=== PATIENT | female | born 1995 | race Caucasian/White ===

== ENCOUNTER 2017-01-27 00:10 | Emergency (ER) | payer BC, OTHER ==
[~2017-01-27 00:10] MED LIST: PRED-503 PO
[2017-01-27 00:12] VITALS: BP 136/74; PULSE 113; RESP 16; TEMP 97.7; O2SAT 99
--- NOTE | 2017-01-27 01:50 | PD ---
HPI Chief Complaint: Related Problem Time Seen by Provider: 01:50 Travel History International Travel<30 days: No Contact w/Intl Traveler<30days: No Traveled to known affect area: No History of Present Illness HPI 21-year-old female came to the emergency room with history of right adnexal pain for past 2 days. Patient found out 3 days ago that she was . Her LMP was December 17. No vaginal bleeding. Patient is A0. She is otherwise doing fine. No history of nausea vomiting. Vital signs are stable. Patient is otherwise a healthy person. No history of dysuria or hematuria. Patient does not have an OB care yet. Pain is constantly there, but waxes and wanes. Worse upon walking. PFSH Past Medical History Narrative Medical List of her past medical, surgical, social and family history is reviewed from the nursing note. Medical History: Denies Significant Hx Developmental Delay: No Diminished Hearing: No Immunizations Current: Yes Tetanus Vaccination: Unknown ?: LMP: 12/19/16 Past Surgical History Surgical History: No Previous Surgery Social History Alcohol Use: No Tobacco Use: No Substance Use: No Allergies-Medications (Allergen,Severity, Reaction): Coded Allergies: No Known Allergies (Unverified , 01/29/17) Comments No known drug allergies. Reported Meds & Prescriptions Reported Meds & Active Scripts Active Plus Iron 29-1 mg ( Vit-Iron Carbonyl) 29 Mg Iron-1 Mg Tab 1 Tab PO DAILY Narrative Medication List of her home medications reviewed from the nursing note. Review of Systems Except as stated in HPI: all other systems reviewed are Neg Genitourinary: Positive: Pelvic Pain Physical Exam Narrative GENERAL: Awake, alert, no obvious distress SKIN: Focused skin assessment warm/dry. HEAD: Atraumatic. Normocephalic. EYES: Pupils equal and round. No scleral icterus. No injection or drainage. ENT: No nasal bleeding or discharge. Mucous membranes pink and moist. NECK: Trachea midline. No JVD. CARDIOVASCULAR: Regular rate and rhythm. No murmur appreciated. RESPIRATORY: No accessory muscle use. Clear to auscultation. Breath sounds equal bilaterally. GASTROINTESTINAL: Abdomen soft, non-tender, nondistended. Hepatic and splenic margins not palpable. MUSCULOSKELETAL: No obvious deformities. No clubbing. No cyanosis. No edema. NEUROLOGICAL: Awake and alert. No obvious cranial nerve deficits. Motor grossly within normal limits. Normal speech. PSYCHIATRIC: Appropriate mood and affect; insight and judgment normal. Data Data Last Documented VS Orders Orders Ed Poc Ultrasound (01/27/17 ) Beta Hcg (Quant/Titer) (01/27/17 01:56) Complete Blood Count With Diff (01/27/17 01:56) Basic Metabolic Panel (Bmp) (01/27/17 01:56) Type And Screen (01/27/17 01:56) Urinalysis - C+S If Indicated (01/27/17 01:56) Ed Discharge Order (01/27/17 04:25) Labs Laboratory Tests Test 01/27/17 02:34 01/27/17 03:22 White Blood Count 13.6 TH/MM3 Red Blood Count 4.54 MIL/MM3 Hemoglobin 14.5 GM/DL Hematocrit 41.4 % Mean Corpuscular Volume 91.2 FL Mean Corpuscular Hemoglobin 32.0 PG Mean Corpuscular Hemoglobin Concent 35.1 % Red Cell Distribution Width 12.6 % Platelet Count 293 TH/MM3 Mean Platelet Volume 7.2 FL Neutrophils (%) (Auto) 64.0 % Lymphocytes (%) (Auto) 27.1 % Monocytes (%) (Auto) 6.9 % Eosinophils (%) (Auto) 1.2 % Basophils (%) (Auto) 0.8 % Neutrophils # (Auto) 8.7 TH/MM3 Lymphocytes # (Auto) 3.7 TH/MM3 Monocytes # (Auto) 0.9 TH/MM3 Eosinophils # (Auto) 0.2 TH/MM3 Basophils # (Auto) 0.1 TH/MM3 CBC Comment DIFF FINAL Differential Comment Urine Color LIGHT-YELLOW Urine Turbidity CLEAR Urine pH 6.5 Urine Specific [place] 1.011 Urine Protein NEG mg/dL Urine Glucose (UA) NEG mg/dL Urine Ketones NEG mg/dL Urine Occult Blood NEG Urine Nitrite NEG Urine Bilirubin NEG Urine Urobilinogen LESS THAN 2.0 MG/DL Urine Leukocyte Esterase NEG Urine RBC LESS THAN 1 /hpf Urine WBC 1 /hpf Urine Squamous Epithelial Cells 1 /hpf Microscopic Urinalysis Comment CULT NOT INDICATED Blood Urea Nitrogen 15 MG/DL Creatinine 0.74 MG/DL Random Glucose 91 MG/DL Calcium Level 8.6 MG/DL Sodium Level 139 MEQ/L Potassium Level 3.6 MEQ/L Chloride Level 106 MEQ/L Carbon Dioxide Level 22.1 MEQ/L Anion Gap 11 MEQ/L Estimat Glomerular Filtration Rate 101 ML/MIN Human Chorionic Gonadotropin, Quant 925 MIU/ML MDM Medical Decision Making Medical Screen Exam Complete: Yes Emergency Medical Condition: Yes Medical Record Reviewed: Yes Differential Diagnosis Ectopic , early , UTI Narrative Course 4:34 AM based on my bedside pelvic ultrasound and unable to visualize a distinct pole I ordered blood test. Blood test results of back and beta- hCG is less than 1000. At this point I have chosen to discharge the patient since any ultrasound will be a low yield and asked her to return in 48 hours for repeat beta-hCG. I explained everything to the patient and she understands. Her boyfriend is here who understands as well. Patient will be discharged home. Procedures Procedure Narrative Emergency Department Pelvic ultrasound was performed with patient consent. The curvilinear probe was used in the transverse and sagittal views within the suprapubic region revealing inconclusive intrauterine . EKG Prior to Arrival: No Diagnosis Primary Impression: Early stage of Additional Impression: Pelvic pain affecting Qualified Codes: O26.891 - Other specified related conditions, first trimester; R10.2 - Pelvic and perineal pain Referrals: Primary Care Physician Additional Instructions: Otherwise return in 48 hours to get the repeat beta-hCG test done. Take the medication as per the prescription direction. Med/Other Pt SpecificInfo: Prescription(s) given Scripts Vit-Iron Carbonyl ( Plus Iron 29-1 mg) 29 Mg Iron-1 Mg Tab 1 TAB PO DAILY for Nutritional Supplement, #30 TAB 0 Refills Prov: Michelle Fam MD 01/27/17 Disposition: DISCHARGE HOME Condition: Stable Michelle Fam MD Jan 27, 2017 01:50
[2017-01-27 02:52] LABS: AUTOMATED NEUTROPHIL # 8.7 TH/MM3 (1.8-7.7); BASOPHIL # 0.1 TH/MM3 (0-0.2); BASOPHIL % 0.8 % (0.0-2.0); EOSINOPHIL # 0.2 TH/MM3 (0-0.4); EOSINOPHIL % 1.2 % (0.0-4.0); HEMATOCRIT 41.4 % (35.0-46.0); HEMOGLOBIN 14.5 GM/DL (11.6-15.3); LYMPH % 27.1 % (9.0-44.0); LYMPHOCYTE # 3.7 TH/MM3 (1.0-4.8); MEAN CELL VOLUME 91.2 FL (80.0-100.0); MEAN CORPUSCULAR HGB CONC 35.1 % (32.0-36.0); MEAN PLATELET VOLUME 7.2 FL (7.0-11.0); MONO % 6.9 % (0.0-8.0); MONOCYTE # 0.9 TH/MM3 (0-0.9); PLATELET COUNT 293 TH/MM3 (150-450); RED BLOOD COUNT 4.54 MIL/MM3 (4.00-5.30); RED CELL DISTRIBUTION WIDTH 12.6 % (11.6-17.2); WHITE BLOOD COUNT 13.6 TH/MM3 (4.0-11.0)
[2017-01-27 02:53] LABS: BILIRUBIN, URINE NEG (NEG); BLOOD, URINE NEG (NEG); GLUCOSE,URINE NEG (NEG); KETONE, URINE NEG (NEG); NITRITE,URINE NEG (NEG); PH, URINE 6.5 (5.0-8.5); SQUAMOUS EPITHELIAL CELL URINE 1 /hpf (0-5); URINE COLOR LIGHT-YELLOW (YELLW/STRAW); URINE LEUKOCYTE ESTERASE NEG (NEG)
[2017-01-27 04:21] LABS: BICARBONATE 22.1 MEQ/L (21.0-32.0); CALCIUM 8.6 MG/DL (8.5-10.1); CREATININE 0.74 MG/DL (0.50-1.00)
[2017-01-27] MEDS ORDERED: PREN29TA PO ×2 (04:36)
[2017-02-08] MEDS ORDERED: TRAM50TA PO ×2 (21:58)
== END 2017-01-27 04:40 | disposition home or self-care (01) ==
LOC: NEPE 00:10
DX: O26.891 Other specified pregnancy related conditions, first trimester (principal); R10.2 Pelvic and perineal pain; Z3A.01 Less than 8 weeks gestation of pregnancy
CPT/HCPCS: 80048; 81001; 84702; 85025; 86850; 86900; 86901; 99284

== ENCOUNTER 2017-02-08 18:58 | Emergency (ER) | payer OTHER ==
[~2017-02-08] VITALS: Ht 170.2 cm; Wt 82.0 kg
[~2017-02-08 18:58] MED LIST changes: -PRED-503 PO; +PREN29TA PO
[2017-02-08 19:01] VITALS: BP 126/74; PULSE 86; RESP 16; TEMP 98.8; O2SAT 100
[2017-02-08 20:16] LABS: BLOOD, URINE MOD (NEG); COMMENT (UR) CULT NOT INDICATED; CULTURE IF INDICATED CULT NOT INDICATED; GLUCOSE,URINE NEG (NEG); KETONE, URINE NEG (NEG); NITRITE,URINE NEG (NEG); PH, URINE 5.5 (5.0-8.5); URINE COLOR COLORLESS (YELLW/STRAW)
[2017-02-08 20:20] LABS: AUTOMATED NEUTROPHIL # 8.6 TH/MM3 (1.8-7.7); BASOPHIL # 0.1 TH/MM3 (0-0.2); BASOPHIL % 0.6 % (0.0-2.0); EOSINOPHIL # 0.1 TH/MM3 (0-0.4); EOSINOPHIL % 1.1 % (0.0-4.0); HEMO FLAGS DIFF FINAL; LYMPHOCYTE # 2.9 TH/MM3 (1.0-4.8); MEAN CELL VOLUME 90.9 FL (80.0-100.0); MEAN CORPUSCULAR HEMOGLOBIN 31.2 PG (27.0-34.0); MEAN CORPUSCULAR HGB CONC 34.3 % (32.0-36.0); MONO % 7.6 % (0.0-8.0); NEUT % 67.7 % (16.0-70.0); PLATELET COUNT 280 TH/MM3 (150-450); RED BLOOD COUNT 4.62 MIL/MM3 (4.00-5.30); RED CELL DISTRIBUTION WIDTH 12.1 % (11.6-17.2); WHITE BLOOD COUNT 12.7 TH/MM3 (4.0-11.0)
[2017-02-08 20:24] LABS: APTT (PATIENT) 31.2 SEC (24.3-30.1); PROTHROMBIN TIME - PATIENT 10.5 SEC (9.8-11.6)
[2017-02-08 20:40] VITALS: BP 132/77; PULSE 80; RESP 18; O2SAT 100
[2017-02-08 20:44] LABS: BICARBONATE 24.2 MEQ/L (21.0-32.0); POTASSIUM 3.5 MEQ/L (3.5-5.1)
--- NOTE | 2017-02-08 20:51 | PD ---
HPI Chief Complaint: Related Problem Time Seen by Provider: 20:27 Travel History International Travel<30 days: No Contact w/Intl Traveler<30days: No Traveled to known affect area: No History of Present Illness HPI Patient is a 21-year-old female presenting to the emergency department for evaluation of vaginal bleeding and abdominal cramping. Patient states she is 7 weeks . She states the bleeding and cramping started at 6 PM this evening. She reports passing large clots. She denies any dysuria, abdominal pain, fever, chills. PFS Past Medical History Medical History: Denies Significant Hx Developmental Delay: No Diminished Hearing: No Immunizations Current: Yes ?: LMP: 12/18/2016 Social History Alcohol Use: No Tobacco Use: No Substance Use: No Allergies-Medications (Allergen,Severity, Reaction): Coded Allergies: No Known Allergies (Unverified Adverse Reaction, Unknown, 02/08/17) Reported Meds & Prescriptions Reported Meds & Active Scripts Active Plus Iron 29-1 mg ( Vit-Iron Carbonyl) 29 Mg Iron-1 Mg Tab 1 Tab PO DAILY Review of Systems Except as stated in HPI: all other systems reviewed are Neg Genitourinary: Positive: Pelvic Pain (cramping), Vaginal Bleeding Physical Exam Narrative GENERAL: Well-developed, well-nourished, alert female. Resting comfortably in no acute distress. SKIN: Warm and dry. HEAD: Atraumatic. Normocephalic. EYES: Pupils equal and round. No scleral icterus. No injection or drainage. ENT: No nasal bleeding or discharge. Mucous membranes pink and moist. NECK: Trachea midline. No JVD. CARDIOVASCULAR: Regular rate and rhythm. RESPIRATORY: No accessory muscle use. Clear to auscultation. Breath sounds equal bilaterally. GASTROINTESTINAL: Abdomen soft, non-tender, nondistended. Hepatic and splenic margins not palpable. MUSCULOSKELETAL: Extremities without clubbing, cyanosis, or edema. No obvious deformities. NEUROLOGICAL: Awake and alert. No obvious cranial nerve deficits. Motor grossly within normal limits. Five out of 5 muscle strength in the arms and legs. Normal speech. PSYCHIATRIC: Appropriate mood and affect; insight and judgment normal. Data Data Last Documented VS Vital Signs Date Time Temp Pulse Resp B/P (MAP) Pulse Ox O2 Delivery O2 Flow Rate FiO2 02/08/17 20:40 80 18 132/77 (95) 100 Room Air 02/08/17 19:01 98.8 Orders Orders Basic Metabolic Panel (Bmp) (02/08/17 19:13) Beta Hcg (Quant/Titer) (02/08/17 19:13) Complete Blood Count With Diff (02/08/17 19:13) Prothrombin Time / Inr (Pt) (02/08/17 19:13) Act Partial Throm Time (Ptt) (02/08/17 19:13) Urinalysis - C+S If Indicated (02/08/17 19:13) Complete Rh (02/08/17 19:13) Oxycodone-Acetamin 5-325 Mg (Percocet (02/08/17 22:00) Labs Laboratory Tests Test 02/08/17 20:00 White Blood Count 12.7 TH/MM3 Red Blood Count 4.62 MIL/MM3 Hemoglobin 14.4 GM/DL Hematocrit 42.0 % Mean Corpuscular Volume 90.9 FL Mean Corpuscular Hemoglobin 31.2 PG Mean Corpuscular Hemoglobin Concent 34.3 % Red Cell Distribution Width 12.1 % Platelet Count 280 TH/MM3 Mean Platelet Volume 7.2 FL Neutrophils (%) (Auto) 67.7 % Lymphocytes (%) (Auto) 23.0 % Monocytes (%) (Auto) 7.6 % Eosinophils (%) (Auto) 1.1 % Basophils (%) (Auto) 0.6 % Neutrophils # (Auto) 8.6 TH/MM3 Lymphocytes # (Auto) 2.9 TH/MM3 Monocytes # (Auto) 1.0 TH/MM3 Eosinophils # (Auto) 0.1 TH/MM3 Basophils # (Auto) 0.1 TH/MM3 CBC Comment DIFF FINAL Differential Comment Prothrombin Time 10.5 SEC Prothromb Time International Ratio 1.0 RATIO Activated Partial Thromboplast Time 31.2 SEC Urine Color COLORLESS Urine Turbidity CLEAR Urine pH 5.5 Urine Specific [place] 1.006 Urine Protein NEG mg/dL Urine Glucose (UA) NEG mg/dL Urine Ketones NEG mg/dL Urine Occult Blood MOD Urine Nitrite NEG Urine Bilirubin NEG Urine Urobilinogen LESS THAN 2.0 MG/DL Urine Leukocyte Esterase NEG Urine RBC 4 /hpf Urine WBC 1 /hpf Microscopic Urinalysis Comment CULT NOT INDICATED Blood Urea Nitrogen 15 MG/DL Creatinine 0.77 MG/DL Random Glucose 86 MG/DL Calcium Level 10.0 MG/DL Sodium Level 136 MEQ/L Potassium Level 3.5 MEQ/L Chloride Level 101 MEQ/L Carbon Dioxide Level 24.2 MEQ/L Anion Gap 11 MEQ/L Estimat Glomerular Filtration Rate 97 ML/MIN Human Chorionic Gonadotropin, Quant 4669 MIU/ML MDM Medical Decision Making Medical Screen Exam Complete: Yes Emergency Medical Condition: Yes Interpretation(s) Vital Signs Date Time Temp Pulse Resp B/P (MAP) Pulse Ox O2 Delivery O2 Flow Rate FiO2 02/08/17 20:40 80 18 132/77 (95) 100 Room Air 02/08/17 20:34 (91) 02/08/17 19:01 98.8 86 16 126/74 (91) 100 Differential Diagnosis Miscarriage versus threatened versus vaginal bleeding versus anemia versus other Narrative Course Patient presented for evaluation of vaginal bleeding during first semester . Patient's vital signs are stable, labs ordered and pending. Bedside ultrasound did not reveal any heart tones. Cervix is open with large clots and bloody drainage noted in vaginal vault. HCG level trended up from from 1299 on 01/26/17 to 4669 today. CBC is unremarkable Urinalysis with moderate occult blood which is to be expected to the vaginal bleeding. Tissue sent to pathology. Physical exam findings appear most consistent with miscarriage. Discussed with patient and mother at bedside. She was encouraged to follow-up with her OB/ SCIENTIST/ENGINEER. She was given Percocet for abdominal cramping prior to discharge. She was encouraged return to emergency department for any new or worsening symptoms. Patient mother verbalized understanding of instructions. Patient stable for discharge. Diagnosis Primary Impression: Miscarriage Referrals: Treasurer 3 days Patient Instructions: General Instructions, Miscarriage (ED) Additional Instructions: Follow-up with your SALESFORCE BUSINESS ANALYST Return to emergency department immediately for any new or worsening symptoms Take medication as needed and as directed for pain Do not drive or operate machinery while taking narcotic pain medication Med/Other Pt SpecificInfo: Prescription(s) given Scripts Tramadol (Tramadol) 50 Mg Tab 50 MG PO Q6H Y for PAIN, #10 TAB 0 Refills Prov: Rebeka Ennis 02/08/17 Disposition: 01 DISCHARGE HOME Condition: Stable Rebeka Ennis Feb 08, 2017 20:51
[2017-02-08] MEDS ORDERED: TRAM50TA PO (21:58)
[2017-02-08] MEDS ORDERED: oxyCODONE/ACETAMINOPHEN 5 MG/325 MG TAB PO ONE (22:00)
== END 2017-02-08 22:50 | disposition home or self-care (01) ==
LOC: NEPE 18:58
DX: O03.9 Complete or unspecified spontaneous abortion without complication (principal)
CPT/HCPCS: 80048; 81001; 84702; 85025; 85610; 85730; 86901; 88305; 99284

== ENCOUNTER 2017-04-05 19:49 | Emergency (ER) | payer OTHER ==
[~2017-04-05] VITALS: Ht 170.2 cm; Wt 81.8 kg
[~2017-04-05 19:49] MED LIST changes: +TRAM50TA PO
[2017-04-05 19:51] VITALS: BP 124/81; PULSE 73; RESP 16; TEMP 99.1; O2SAT 100
[2017-04-05] MEDS ORDERED: TETANUS/DIPHTHERIA TOXOID ADULT 0.5 ML VIAL IM ONE (20:15)
--- NOTE | 2017-04-05 20:16 | PD ---
HPI Chief Complaint: Laceration/Skin Injury Time Seen by Provider: 20:05 Travel History International Travel<30 days: No Contact w/Intl Traveler<30days: No Traveled to known affect area: No History of Present Illness HPI 22-year-old otherwise healthy female presents to the emergency room for evaluation of laceration to her left second finger that occurred just prior to arrival. Patient was chopping onions when she missed her finger and hit her nail. States she applied pressure but the bleeding would not stop so she came to the emergency room. Patient denies significant pain. She did not wash the wound. Unknown last tetanus. [facility] Past Medical History Developmental Delay: No Diminished Hearing: No Immunizations Current: Yes ?: Not Social History Alcohol Use: No Tobacco Use: No Substance Use: No Allergies-Medications (Allergen,Severity, Reaction): Coded Allergies: No Known Allergies (Unverified Adverse Reaction, Unknown, 04/05/17) Reported Meds & Prescriptions Reported Meds & Active Scripts Active Review of Systems Except as stated in HPI: all other systems reviewed are Neg Physical Exam Narrative GENERAL: Well-nourished, well-developed female in no acute distress. Afebrile. Ambulatory. SKIN: Focused skin assessment warm/dry. There is a superficial 0.5 cm laceration to the left second finger on the lateral aspect of the dorsal, distal finger. There is a very small extension into the fingernail. HEAD: Normocephalic. EYES: No scleral icterus. No injection or drainage. NECK: Supple, trachea midline. No JVD or lymphadenopathy. CARDIOVASCULAR: Regular rate and rhythm without murmurs, gallops, or rubs. RESPIRATORY: Breath sounds equal bilaterally. No accessory muscle use. PSYCHIATRIC: No delusional thought processes. No hallucinations. Data Data Last Documented VS Vital Signs Date Time Temp Pulse Resp B/P (MAP) Pulse Ox O2 Delivery O2 Flow Rate FiO2 04/05/17 19:51 99.1 73 16 124/81 (95) 100 Orders Orders Tetanus/Diphtheria Tox Adult (Tetanus/Di (04/05/17 20:15) MDM Medical Decision Making Medical Screen Exam Complete: Yes Emergency Medical Condition: Yes Medical Record Reviewed: Yes Differential Diagnosis Laceration, tetanus prophylaxis, contusion, avulsion Narrative Course 22-year-old otherwise healthy female presents to ED for evaluation of laceration to left second finger that occurred just prior to arrival. Patient accidentally cut herself while cutting onions. There is a superficial 0.5 cm laceration to the left second finger on the lateral aspect of the dorsal, distal finger. There is a very small extension into the fingernail. Wound does not require repair. It was thoroughly cleansed. Glue was applied to prevent no from snagging. Tetanus updated. Patient was discharged with wound care instructions and told to follow up with PCP or return for worsening symptoms. She understands and agrees to plan. Diagnosis Primary Impression: Finger laceration Qualified Codes: S61.311A - Laceration without foreign body of left index finger with damage to nail, initial encounter Referrals: Primary Care Physician Additional Instructions: Keep wound clean and dry. When the glue falls off, apply triple about appointment daily until healed. Follow-up with a primary care physician. Return to the emergency room for worsening symptoms. Disposition: 01 DISCHARGE HOME Condition: Stable Kalee Mejia Apr 05, 2017 20:16
== END 2017-04-05 20:38 | disposition home or self-care (01) ==
LOC: NEPK 19:49
DX: S61.311A Laceration without foreign body of left index finger with damage to nail, initial encounter (principal); W26.0XXA Contact with knife, initial encounter; Y93.G1 Activity, food preparation and clean up; Z23 Encounter for immunization
CPT/HCPCS: 90471; 90714

== ENCOUNTER 2017-04-07 21:02 | Emergency (ER) | payer OTHER ==
[~2017-04-07] VITALS: Ht 170.2 cm; Wt 80.0 kg
[2017-04-07 21:04] VITALS: BP 120/72; PULSE 116; RESP 16; TEMP 98.3; O2SAT 99
[2017-04-07 23:34] VITALS: O2SAT 98
[2017-04-07 23:56] LABS: AUTOMATED NEUTROPHIL # 4.7 TH/MM3 (1.8-7.7); BASOPHIL % 0.3 % (0.0-2.0); EOSINOPHIL # 0.3 TH/MM3 (0-0.4); EOSINOPHIL % 2.9 % (0.0-4.0); HEMATOCRIT 42.1 % (35.0-46.0); HEMOGLOBIN 14.9 GM/DL (11.6-15.3); LYMPH % 31.1 % (9.0-44.0); LYMPHOCYTE # 2.8 TH/MM3 (1.0-4.8); MEAN CELL VOLUME 91.3 FL (80.0-100.0); MEAN CORPUSCULAR HEMOGLOBIN 32.2 PG (27.0-34.0); MEAN CORPUSCULAR HGB CONC 35.3 % (32.0-36.0); MEAN PLATELET VOLUME 7.4 FL (7.0-11.0); MONO % 12.6 % (0.0-8.0); MONOCYTE # 1.1 TH/MM3 (0-0.9); NEUT % 53.1 % (16.0-70.0); PLATELET COUNT 276 TH/MM3 (150-450); RED BLOOD COUNT 4.61 MIL/MM3 (4.00-5.30); RED CELL DISTRIBUTION WIDTH 12.7 % (11.6-17.2); WHITE BLOOD COUNT 8.9 TH/MM3 (4.0-11.0)
[2017-04-07 23:57] LABS: AMORPHOUS SEDIMENT, URINE RARE; BACTERIA, URINE RARE /hpf; BILIRUBIN, URINE NEG (NEG); BLOOD, URINE NEG (NEG); GLUCOSE,URINE NEG (NEG); KETONE, URINE NEG (NEG); MUCUS URINE FEW /lpf (OCC); NITRITE,URINE NEG (NEG); SQUAMOUS EPITHELIAL CELL URINE 1 /hpf (0-5); URINE COLOR LIGHT-YELLOW (YELLW/STRAW); URINE LEUKOCYTE ESTERASE NEG (NEG)
--- NOTE | 2017-04-07 23:58 | PD ---
HPI Chief Complaint: Cold / Flu Symptoms Time Seen by Provider: 23:26 Travel History International Travel<30 days: No Contact w/Intl Traveler<30days: No Traveled to known affect area: No History of Present Illness HPI Patient is a 22-year-old female who has had 4 days of shaking chills body aches and diarrhea. Today she took Ronda-Emelle cold and half an hour later vomited and she does not feel any better from that medicine only medication she took in the last few days to make herself feel better she did not take anything to stop the diarrhea. She lives with 4 other grown adults known also sick. She has not seen another doctor. Again the Ronda-Emelle cold and flu seem to make things worse. Her main complaint is shaking chills body aches diarrhea excessive for the last 4 days PFSH Past Medical History Medical History: Denies Significant Hx Developmental Delay: No Diminished Hearing: No Immunizations Current: Yes Influenza Vaccination: Yes ?: Not LMP: 04/02/2017 Past Surgical History Surgical History: No Previous Surgery Social History Alcohol Use: No Tobacco Use: Yes (04/05 PPD) Substance Use: No Allergies-Medications (Allergen,Severity, Reaction): Coded Allergies: No Known Allergies (Unverified Adverse Reaction, Unknown, 04/05/17) Reported Meds & Prescriptions Reported Meds & Active Scripts Active Pseudoephedrine (Pseudoephedrine HCl) 60 Mg Tab 60 Mg PO Q6H PRN Ibuprofen 600 Mg Tab 600 Mg PO Q6H PRN Review of Systems Except as stated in HPI: all other systems reviewed are Neg Physical Exam Narrative GENERAL: Nontoxic-appearing awake alert no signs of distress SKIN: Warm and dry. HEAD: Atraumatic. Normocephalic. EYES: Pupils equal and round. No scleral icterus. No injection or drainage. ENT: No nasal bleeding or discharge. Mucous membranes pink and moist. Serial pharynx is erythematous but there is no exudate NECK: Trachea midline. No JVD. CARDIOVASCULAR: Regular rate and rhythm. RESPIRATORY: No accessory muscle use. Clear to auscultation. Breath sounds equal bilaterally. Her lungs are clear to auscultation there is no wheeze no crackles GASTROINTESTINAL: Abdomen soft, mild epigastric and right upper quadrant tenderness-tender, nondistended. Hepatic and splenic margins not palpable. MUSCULOSKELETAL: Extremities without clubbing, cyanosis, or edema. No obvious deformities. NEUROLOGICAL: Awake and alert. No obvious cranial nerve deficits. Motor grossly within normal limits. Five out of 5 muscle strength in the arms and legs. Normal speech. PSYCHIATRIC: Appropriate mood and affect; insight and judgment normal. Data Data Last Documented VS Vital Signs Date Time Temp Pulse Resp B/P (MAP) Pulse Ox O2 Delivery O2 Flow Rate FiO2 04/08/17 01:15 80 16 116/76 (89) 99 04/07/17 21:04 98.3 Room Air Orders Orders Complete Blood Count With Diff (04/07/17 23:23) Comprehensive Metabolic Panel (04/07/17 23:23) Urinalysis - C+S If Indicated (04/07/17 23:23) Ed Urine Pregnancytest Poc (04/07/17 23:23) Iv Access Insert/Monitor (04/07/17 23:23) Oxygen Administration (04/07/17 23:23) Oximetry (04/07/17 23:23) Lipase (04/07/17 23:23) Influenzae A/B Antigen (04/07/17 23:35) Group A Rapid Strep Screen (04/07/17 23:35) Ketorolac Inj (Toradol Inj) (04/08/17 00:00) Strep Culture (Group A) (04/08/17 00:00) Ed Discharge Order (04/08/17 01:11) Labs Laboratory Tests Test 04/07/17 23:25 White Blood Count 8.9 TH/MM3 Red Blood Count 4.61 MIL/MM3 Hemoglobin 14.9 GM/DL Hematocrit 42.1 % Mean Corpuscular Volume 91.3 FL Mean Corpuscular Hemoglobin 32.2 PG Mean Corpuscular Hemoglobin Concent 35.3 % Red Cell Distribution Width 12.7 % Platelet Count 276 TH/MM3 Mean Platelet Volume 7.4 FL Neutrophils (%) (Auto) 53.1 % Lymphocytes (%) (Auto) 31.1 % Monocytes (%) (Auto) 12.6 % Eosinophils (%) (Auto) 2.9 % Basophils (%) (Auto) 0.3 % Neutrophils # (Auto) 4.7 TH/MM3 Lymphocytes # (Auto) 2.8 TH/MM3 Monocytes # (Auto) 1.1 TH/MM3 Eosinophils # (Auto) 0.3 TH/MM3 Basophils # (Auto) 0.0 TH/MM3 CBC Comment DIFF FINAL Differential Comment Urine Color LIGHT-YELLOW Urine Turbidity CLEAR Urine pH 6.0 Urine Specific [place] 1.008 Urine Protein NEG mg/dL Urine Glucose (UA) NEG mg/dL Urine Ketones NEG mg/dL Urine Occult Blood NEG Urine Nitrite NEG Urine Bilirubin NEG Urine Urobilinogen LESS THAN 2.0 MG/DL Urine Leukocyte Esterase NEG Urine RBC 1 /hpf Urine WBC 2 /hpf Urine Squamous Epithelial Cells 1 /hpf Urine Amorphous Sediment RARE Urine Bacteria RARE /hpf Urine Mucus FEW /lpf Microscopic Urinalysis Comment CULT NOT INDICATED Blood Urea Nitrogen 12 MG/DL Creatinine 0.73 MG/DL Random Glucose 70 MG/DL Total Protein 7.7 GM/DL Albumin 4.1 GM/DL Calcium Level 8.8 MG/DL Alkaline Phosphatase 98 U/L Aspartate Amino Transf (AST/SGOT) 13 U/L Alanine Aminotransferase (ALT/SGPT) 24 U/L Total Bilirubin 0.2 MG/DL Sodium Level 141 MEQ/L Potassium Level 3.5 MEQ/L Chloride Level 107 MEQ/L Carbon Dioxide Level 28.2 MEQ/L Anion Gap 6 MEQ/L Estimat Glomerular Filtration Rate 102 ML/MIN Lipase 160 U/L [facility] Medical Decision Making Medical Screen Exam Complete: Yes Emergency Medical Condition: Yes Differential Diagnosis Viral illness versus strep pharyngitis versus influenza versus viral syndrome and OS versus UTI Narrative Course UA is negative for infection flu swab rapid strep oral negative she has a viral infection and OS we'll treat symptomatically discharged home follow-up as outpatient Diagnosis Primary Impression: Viral illness Patient Instructions: General Instructions, Viral Syndrome (ED) Scripts Pseudoephedrine (Pseudoephedrine) 60 Mg Tab 60 MG PO Q6H Y for NASAL CONGESTION, #15 TAB 0 Refills Prov: Garret Helms MD 04/08/17 Ibuprofen (Ibuprofen) 600 Mg Tab 600 MG PO Q6H Y for Pain/Inflammation, #20 TAB 0 Refills Prov: Garret Helms MD 04/08/17 Disposition: 01 DISCHARGE HOME Condition: Good Garret Helms MD Apr 07, 2017 23:58
[2017-04-08] MEDS ORDERED: KETOROLAC TROMETHAMINE 30 MG/ML (IVP) VIAL IV PUSH ONE
[2017-04-08 00:12] LABS: ALBUMIN 4.1 GM/DL (3.4-5.0); ALT (GPT) 24 U/L (9-42); AST (GOT) 13 U/L (16-38); BICARBONATE 28.2 MEQ/L (21.0-32.0); BLOOD UREA NITROGEN 12 MG/DL (7-18); CALCIUM 8.8 MG/DL (8.5-10.1); CHLORIDE 107 MEQ/L (98-107); CREATININE 0.73 MG/DL (0.50-1.00); GLOMERULAR FILTRATION RATE 102 ML/MIN (>89); GLUCOSE,RANDOM 70 MG/DL (74-106); LIPASE 160 U/L (73-393); SODIUM (NA) 141 MEQ/L (136-145)
[2017-04-08 00:14] LABS: ALKALINE PHOSPHATASE 98 U/L (45-117); TOTAL BILIRUBIN ADULT 0.2 MG/DL (0.2-1.0); TOTAL PROTEIN 7.7 GM/DL (6.4-8.2)
[2017-04-08] MEDS ORDERED: IBUP-232 PO (01:10)
[2017-04-08] MEDS ORDERED: SUDO60TA2 PO (01:10)
[2017-04-08 01:15] VITALS: BP 116/76
== END 2017-04-08 01:20 | disposition home or self-care (01) ==
LOC: NEPE 21:02
DX: B34.9 Viral infection, unspecified (principal); F17.200 Nicotine dependence, unspecified, uncomplicated; R25.1 Tremor, unspecified
CPT/HCPCS: 80053; 81001; 83690; 84703; 85025; 87081; 87804; 87880; 96374; 99284; J1885

== ENCOUNTER 2017-07-07 14:49 | Emergency (ER) | payer OTHER ==
[~2017-07-07 14:49] MED LIST changes: +IBUP-232 PO; -PREN29TA PO; +SUDO60TA2 PO; -TRAM50TA PO
[2017-07-07 14:55] VITALS: BP 116/60; PULSE 78; RESP 16; TEMP 98; O2SAT 98
--- NOTE | 2017-07-07 17:20 | PD ---
HPI Chief Complaint: ENT Complaint Time Seen by Provider: 17:03 Travel History International Travel<30 days: No Contact w/Intl Traveler<30days: No Traveled to known affect area: No History of Present Illness HPI 22-year-old female presents to the emergency department with complaint of sore throat since yesterday. Just found out she was yesterday. Her brother was diagnosed with strep throat yesterday also. Denies ear pain, nasal congestion, cough, fevers, vomiting. Denies lump in throat, difficulty swallowing, unusual drooling. Denies painful swallowing. Denies abdominal cramping, pain. Denies abnormal vaginal discharge, odor, leaking, bleeding. Denies dysuria. Rates sore throat /. Has not taken any medications or try any treatments to alleviate her symptoms. No known aggravating or relieving factors. No primary care provider. No known allergies. History of iron deficiency anemia. Has no other medical complaints. no other modifying factors or associated signs and symptoms. PFSH Past Medical History Developmental Delay: No Diminished Hearing: No Immunizations Current: Yes ?: Social History Alcohol Use: No Tobacco Use: Yes (04/05 PPD) Substance Use: No Allergies-Medications (Allergen,Severity, Reaction): Coded Allergies: No Known Allergies (Unverified Adverse Reaction, Unknown, 04/05/17) Reported Meds & Prescriptions Reported Meds & Active Scripts Active Pseudoephedrine (Pseudoephedrine HCl) 60 Mg Tab 60 Mg PO Q6H PRN Ibuprofen 600 Mg Tab 600 Mg PO Q6H PRN Review of Systems Except as stated in HPI: all other systems reviewed are Neg Physical Exam Narrative GENERAL: Well-nourished, well-developed feet patient, in no acute distress; afebrile, nontoxic-appearing SKIN: Warm and dry. No rash. HEAD: Atraumatic. Normocephalic. EYES: Pupils equal and round. No scleral icterus. No injection or drainage. ENT: Mucosa pink and moist. No erythema or exudates. No uvular edema. No uvular , palatal, or tonsillar deviation. Airway patent. EARS: Bilateral pinnae and external canals appear within normal limits. Bilateral tympanic membranes without erythema, dullness or perforation. NECK: Trachea midline. No lymphadenopathy. CARDIOVASCULAR: Regular rate and rhythm. No murmur appreciated. RESPIRATORY: No accessory muscle use. Clear to auscultation. Breath sounds equal bilaterally. No retractions or tachypnea. GASTROINTESTINAL: Abdomen soft, non-tender, nondistended. Hepatic and splenic margins not palpable. Bowel sounds are active 4 quadrants. MUSCULOSKELETAL: No obvious deformities. No clubbing. No cyanosis. No edema. NEUROLOGICAL: Awake and alert. Oriented 3. No obvious cranial nerve deficits. Motor grossly within normal limits. Normal speech. Moves all extremities. 5/5 strength to all extremities. PSYCHIATRIC: Appropriate mood and affect; insight and judgment normal. Data Data Last Documented VS Vital Signs Date Time Temp Pulse Resp B/P (MAP) Pulse Ox O2 Delivery O2 Flow Rate FiO2 07/07/17 14:55 98.0 78 16 116/60 (78) 98 Orders Orders Group A Rapid Strep Screen (07/07/17 14:57) Strep Culture (Group A) (07/07/17 15:00) Ed Discharge Order (07/07/17 17:20) MDM Medical Decision Making Medical Screen Exam Complete: Yes Emergency Medical Condition: Yes Medical Record Reviewed: Yes Differential Diagnosis Viral pharyngitis, strep pharyngitis, sore throat, less likely peritonsillar abscess Narrative Course 22-year-old female with sore throat. Her brother was diagnosed with strep throat yesterday. She found out she was yesterday. Denies abdominal or vaginal symptoms. Patient is afebrile and nontoxic-appearing. Denies fever , vomiting. Rapid strep negative. Discussed viral illness and symptom management. Instructed patient to follow up with primary care provider. Patient verbalizes understanding and agreement with treatment plan. Patient is medically cleared and stable for discharge. Discussed reasons to return to the emergency department. Patient agrees with treatment plan. The patients vital signs are stable and the patient is stable for outpatient follow-up and treatment. Patient discharged home, stable and in no acute distress. Diagnosis Primary Impression: Sore throat Referrals: [facility] Renal Social Worker Primary Care Physician Patient Instructions: General Instructions, Pharyngitis (ED) Additional Instructions: Get plenty of sleep/rest Rest your voice Drink plenty of fluids to prevent dehydration Use warm saltwater gargles to soothe throat pain Use an air humidifier/turn off ceiling fans Use throat lozenges as needed for sore throat Tylenol as needed to relieve pain and fever Follow-up with your primary care provider Return immediately to the emergency department with worsening of symptoms Med/Other Pt SpecificInfo: No Change to Meds, No Meds Exist/No RX given Disposition: 01 DISCHARGE HOME Condition: Stable Eun Wei Jul 07, 2017 17:20
== END 2017-07-07 17:32 | disposition home or self-care (01) ==
LOC: NEPK 14:49
DX: J02.9 Acute pharyngitis, unspecified (principal); F17.200 Nicotine dependence, unspecified, uncomplicated
CPT/HCPCS: 87081; 87880; 99283

== ENCOUNTER 2017-07-28 19:43 | Emergency (ER) | payer OTHER ==
[~2017-07-28] VITALS: Ht 170.2 cm; Wt 81.5 kg
[2017-07-28 20:19] VITALS: BP 124/75; PULSE 83; RESP 16; TEMP 98.3; O2SAT 100
--- NOTE | 2017-07-28 20:41 | PD ---
HPI Chief Complaint: Abdominal Pain Time Seen by Provider: 20:34 Travel History International Travel<30 days: No Contact w/Intl Traveler<30days: No Traveled to known affect area: No History of Present Illness HPI 22-year-old white female presents emergency department with complaints of lower abdominal cramping pain over the last day. Patient is 8-1/2 weeks with twins. Her last menstrual period was May 28, 2017. She states that this is her second . She had a miscarriage in the past. She was seen approximately 6 weeks ago at [facility] where she was diagnosed with twins. Since then she has had normal progression of her with some associated nausea. She has not seen a soft iron inspector as of yet. Patient states the pain is cramping. Moderate in intensity. Waxing and waning. She has had normal clear vaginal discharge but no abnormal bleeding or leakage of fluid. Patient denies any fever chills. No cough, congestion, shortness of breath, dysuria or frequency. Patient states that she is O+. PFSH Past Medical History Medical History: Denies Significant Hx Developmental Delay: No Diminished Hearing: No Immunizations Current: Yes Tetanus Vaccination: < 5 Years ?: LMP: 05/28/17 : 2 Para: 0 Miscarriage: 1 Past Surgical History Surgical History: No Previous Surgery Social History Alcohol Use: No Tobacco Use: No (quit 3 weeks ago) Substance Use: No Allergies-Medications (Allergen,Severity, Reaction): Coded Allergies: No Known Allergies (Unverified Adverse Reaction, Unknown, 07/28/17) Reported Meds & Prescriptions Reported Meds & Active Scripts Active Review of Systems General / Constitutional: No: Fever Eyes: No: Visual changes HENT: No: Headaches Cardiovascular: No: Chest Pain or Discomfort Respiratory: No: Shortness of Breath Gastrointestinal: Positive: Nausea, Vomiting, Abdominal Pain Genitourinary: Positive: Pelvic Pain, No: Frequency, Dysuria, Dyspareunia, Discharge, Vaginal Bleeding Musculoskeletal: No: Pain Skin: No Rash Neurologic: No: Weakness Psychiatric: No: Depression Endocrine: No: Polydipsia Hematologic/Lymphatic: No: Easy Bruising Physical Exam Narrative GENERAL: Well-developed, well-nourished in no acute distress. Nontoxic appearing. HEAD: Normocephalic, atraumatic. EYES: Pupils equal round and reactive. Extraocular motions intact. No scleral icterus. No injection or drainage. ENT: TMs clear without erythema. The external auditory canals clear. Nose: clear . Posterior pharynx is pink and moist. No tonsillar edema or exudate. Uvula midline. Airway patent. NECK: Trachea midline.Supple, nontender, moves head freely. No central bony tenderness or spasm. CARDIOVASCULAR: Regular rate and rhythm without murmurs, gallops, or rubs. RESPIRATORY: Clear to auscultation. Breath sounds equal bilaterally. No wheezes , rales, or rhonchi. GASTROINTESTINAL: Abdomen soft, non-tender, nondistended. No hepato-splenomegaly , or palpable masses. No guarding. EXTREMITIES: No clubbing, cyanosis, or edema. No joint tenderness, effusion, or edema noted. BACK: Nontender without deformity or crepitance. No flank tenderness. Data Data Last Documented VS Vital Signs Date Time Temp Pulse Resp B/P (MAP) Pulse Ox O2 Delivery O2 Flow Rate FiO2 07/28/17 20:19 98.3 83 16 124/75 (91) 100 Orders Orders Complete Blood Count With Diff (07/28/17 20:42) Comprehensive Metabolic Panel (07/28/17 20:42) Urinalysis - C+S If Indicated (07/28/17 20:42) Iv Access Insert/Monitor (07/28/17 20:42) Sodium Chlor 0.9% 1000 Ml Inj (Ns 1000 M (07/28/17 20:45) Diphenhydramine Inj (Benadryl Inj) (07/28/17 20:45) Us Pelvis (Ques Preg/Ectopic) (07/28/17 20:42) Ed Discharge Order (07/28/17 22:31) Labs Laboratory Tests Test 07/28/17 21:12 07/28/17 21:25 Urine Color YELLOW Urine Turbidity HAZY Urine pH 6.5 Urine Specific [place] 1.016 Urine Protein NEG mg/dL Urine Glucose (UA) NEG mg/dL Urine Ketones NEG mg/dL Urine Occult Blood NEG Urine Nitrite NEG Urine Bilirubin NEG Urine Urobilinogen LESS THAN 2.0 MG/DL Urine Leukocyte Esterase NEG Urine RBC 1 /hpf Urine WBC 2 /hpf Urine Squamous Epithelial Cells 4 /hpf Urine Amorphous Sediment RARE Urine Mucus FEW /lpf Microscopic Urinalysis Comment CULT NOT INDICATED Total Protein 7.0 GM/DL Alkaline Phosphatase 75 U/L Alanine Aminotransferase (ALT/SGPT) 19 U/L Total Bilirubin 0.2 MG/DL White Blood Count 12.1 TH/MM3 Red Blood Count 4.69 MIL/MM3 Hemoglobin 14.6 GM/DL Hematocrit 42.3 % Mean Corpuscular Volume 90.2 FL Mean Corpuscular Hemoglobin 31.1 PG Mean Corpuscular Hemoglobin Concent 34.5 % Red Cell Distribution Width 12.0 % Platelet Count 275 TH/MM3 Mean Platelet Volume 7.5 FL Neutrophils (%) (Auto) 61.4 % Lymphocytes (%) (Auto) 27.5 % Monocytes (%) (Auto) 9.7 % Eosinophils (%) (Auto) 0.9 % Basophils (%) (Auto) 0.5 % Neutrophils # (Auto) 7.4 TH/MM3 Lymphocytes # (Auto) 3.3 TH/MM3 Monocytes # (Auto) 1.2 TH/MM3 Eosinophils # (Auto) 0.1 TH/MM3 Basophils # (Auto) 0.1 TH/MM3 CBC Comment DIFF FINAL Differential Comment MDM Medical Decision Making Medical Screen Exam Complete: Yes Emergency Medical Condition: Yes Medical Record Reviewed: Yes Interpretation(s) Ultrasound pelvis: +8.5 week twin gestations which are viable without complication Laboratory Tests Test 07/28/17 21:12 07/28/17 21:25 Urine Color YELLOW Urine Turbidity HAZY Urine pH 6.5 Urine Specific [place] 1.016 Urine Protein NEG mg/dL Urine Glucose (UA) NEG mg/dL Urine Ketones NEG mg/dL Urine Occult Blood NEG Urine Nitrite NEG Urine Bilirubin NEG Urine Urobilinogen LESS THAN 2.0 MG/DL Urine Leukocyte Esterase NEG Urine RBC 1 /hpf Urine WBC 2 /hpf Urine Squamous Epithelial Cells 4 /hpf Urine Amorphous Sediment RARE Urine Mucus FEW /lpf Microscopic Urinalysis Comment CULT NOT INDICATED Total Protein 7.0 GM/DL Alkaline Phosphatase 75 U/L Alanine Aminotransferase (ALT/SGPT) 19 U/L Total Bilirubin 0.2 MG/DL White Blood Count 12.1 TH/MM3 Red Blood Count 4.69 MIL/MM3 Hemoglobin 14.6 GM/DL Hematocrit 42.3 % Mean Corpuscular Volume 90.2 FL Mean Corpuscular Hemoglobin 31.1 PG Mean Corpuscular Hemoglobin Concent 34.5 % Red Cell Distribution Width 12.0 % Platelet Count 275 TH/MM3 Mean Platelet Volume 7.5 FL Neutrophils (%) (Auto) 61.4 % Lymphocytes (%) (Auto) 27.5 % Monocytes (%) (Auto) 9.7 % Eosinophils (%) (Auto) 0.9 % Basophils (%) (Auto) 0.5 % Neutrophils # (Auto) 7.4 TH/MM3 Lymphocytes # (Auto) 3.3 TH/MM3 Monocytes # (Auto) 1.2 TH/MM3 Eosinophils # (Auto) 0.1 TH/MM3 Basophils # (Auto) 0.1 TH/MM3 CBC Comment DIFF FINAL Differential Comment Differential Diagnosis Differential diagnosis: Hyperemesis, electrolyte abnormality, threatened AB, first trimester Narrative Course Patient's exam is reassuring. Laboratory tests are unremarkable. Ultrasound reveals 2 live twin gestations without complication. Patient is medically stable discharge. Diagnosis Primary Impression: Pelvic pain in Additional Impression: Twin gestation first trimester Referrals: Leslye Weir MD [address] [facility] 1 week Patient Instructions: General Instructions Additional Instructions: Rest. Increase fluids. Tylenol for pain. Pelvic rest. Follow-up with your SCHEDULING REPRESENTATIVE doctor within the next week. Return to the ER for any problems. Med/Other Pt SpecificInfo: No Meds Exist/No RX given Disposition: 01 DISCHARGE HOME Condition: Stable Del Morris Jul 28, 2017 20:41
[2017-07-28] MEDS ORDERED: diphenhydrAMINE HCL 50 MG/ML VIAL IV PUSH ONE (20:45)
[2017-07-28] MEDS ORDERED: SODIUM CHLOR 0.9% 1000 ML INJ 1,000 ML IV ONE (20:45)
[2017-07-28 21:48] LABS: AUTOMATED NEUTROPHIL # 7.4 TH/MM3 (1.8-7.7); BASOPHIL # 0.1 TH/MM3 (0-0.2); BASOPHIL % 0.5 % (0.0-2.0); EOSINOPHIL # 0.1 TH/MM3 (0-0.4); EOSINOPHIL % 0.9 % (0.0-4.0); HEMATOCRIT 42.3 % (35.0-46.0); HEMOGLOBIN 14.6 GM/DL (11.6-15.3); LYMPH % 27.5 % (9.0-44.0); LYMPHOCYTE # 3.3 TH/MM3 (1.0-4.8); MEAN CELL VOLUME 90.2 FL (80.0-100.0); MEAN CORPUSCULAR HEMOGLOBIN 31.1 PG (27.0-34.0); MEAN CORPUSCULAR HGB CONC 34.5 % (32.0-36.0); MEAN PLATELET VOLUME 7.5 FL (7.0-11.0); MONO % 9.7 % (0.0-8.0); MONOCYTE # 1.2 TH/MM3 (0-0.9); NEUT % 61.4 % (16.0-70.0); PLATELET COUNT 275 TH/MM3 (150-450); RED BLOOD COUNT 4.69 MIL/MM3 (4.00-5.30); WHITE BLOOD COUNT 12.1 TH/MM3 (4.0-11.0)
[2017-07-28 21:49] LABS: AMORPHOUS SEDIMENT, URINE RARE; BILIRUBIN, URINE NEG (NEG); BLOOD, URINE NEG (NEG); GLUCOSE,URINE NEG (NEG); KETONE, URINE NEG (NEG); MUCUS URINE FEW /lpf (OCC); NITRITE,URINE NEG (NEG); PH, URINE 6.5 (5.0-8.5); SQUAMOUS EPITHELIAL CELL URINE 4 /hpf (0-5); URINE COLOR YELLOW (YELLW/STRAW); URINE LEUKOCYTE ESTERASE NEG (NEG)
--- NOTE | 2017-07-28 22:28 | RADRPT ---
EXAM DATE/TIME: 07/28/2017 21:25 [place] COMPARISON: US PELVIS (QUEST PREG/ECTOPIC) W/TRANSVAG, January 29, 2017, 4:21. INDICATIONS : Cramping x 1 day. Patient is with twins. LAB(S): Beta-hCG: N/A MEDICAL HISTORY : . SURGICAL HISTORY : None. ENCOUNTER: Initial ACUITY: 1 day PAIN SCORE: 1/10 LOCATION: pelvis MEASUREMENTS: UTERUS: 8.4 x 7.9 x 5.0 cm ENDOMETRIAL STRIPE: 9 mm RIGHT OVARY: 3.1 x 1.7 x 1.4 cm LEFT OVARY: 2.7 x 2.3 x 1.9 cm FREE FLUID: No CROWN RUMP LENGTH: A = 2.08 cm, B = 2.07 cm = 8 WKS 5 DAYS FHR: A = 163, B = 167 BPM FINDINGS: UTERUS: Twin intrauterine pregnancies are present at approximately 8 weeks gestational age. Heart tones are d emonstrated of both fetuses. RIGHT OVARY: Ovary contains no mass or significant cystic lesion. LEFT OVARY: Ovary contains no mass or significant cystic lesion. MISCELLANEOUS: No free fluid. Patient declined transvaginal imaging. CONCLUSION: Twin viable intrauterine without evidence of an acute complication. Eladio Norwood MD on July 28, 2017 at 22:22 Board Certified Radiologist. This report was verified electronically.
== END 2017-07-28 23:06 | disposition home or self-care (01) ==
LOC: NEPD 19:43
DX: O26.891 Other specified pregnancy related conditions, first trimester (principal); R10.2 Pelvic and perineal pain; O30.001 Twin pregnancy, unspecified number of placenta and unspecified number of amniotic sacs, first trimester; Z3A.08 8 weeks gestation of pregnancy; Z87.891 Personal history of nicotine dependence
CPT/HCPCS: 76700; 81001; 85025; 96374; 99284; J1200; J7030; 80053

== ENCOUNTER 2017-08-05 20:31 | Emergency (ER) | payer OTHER ==
[~2017-08-05] VITALS: Ht 170.2 cm; Wt 81.5 kg
[2017-08-05 20:38] VITALS: BP 126/77; PULSE 90; RESP 16; TEMP 99; O2SAT 100
[2017-08-05] MEDS ORDERED: PREN29TA PO (20:47)
[2017-08-05] MEDS ORDERED: SODIUM CHLOR 0.9% 1000 ML INJ 1,000 ML IV ONE (21:08)
[2017-08-05] MEDS ORDERED: SODIUM CHLORIDE 0.9% FLUSH 10 ML FLUSH IVF PRN (21:15)
[2017-08-05] MEDS ORDERED: ONDANSETRON HCL 4 MG/2 ML VIAL IV PUSH ONE (21:15)
--- NOTE | 2017-08-05 21:24 | PD ---
HPI Chief Complaint: GI Complaint Time Seen by Provider: 21:07 Travel History International Travel<30 days: No Contact w/Intl Traveler<30days: No Traveled to known affect area: No History of Present Illness HPI Patient is a 22-year-old female presenting to the emergency department for evaluation of nausea, vomiting, diarrhea. She states she is approximately 10 weeks and has had mild nausea with the however for the last 48 hours she has been unable to keep down any fluid or foods. She reports frequent loose stools. She denies any fever, chills, contaminated foods or sick contacts. She denies any abdominal pain, cramping, vaginal bleeding or discharge. Symptom onset was sudden, symptoms are moderate in nature. There are no alleviating factors. Symptoms are exacerbated with any oral intake. [facility] Past Medical History Medical History: Denies Significant Hx Developmental Delay: No Diminished Hearing: No Immunizations Current: Yes Tetanus Vaccination: < 5 Years Influenza Vaccination: No ?: : 2 Para: 0 Miscarriage: 1 Past Surgical History Surgical History: No Previous Surgery Social History Alcohol Use: No Tobacco Use: No (quit 2 weeks ago) Substance Use: No Allergies-Medications (Allergen,Severity, Reaction): Coded Allergies: No Known Allergies (Unverified Adverse Reaction, Unknown, 07/28/17) Reported Meds & Prescriptions Reported Meds & Active Scripts Active Reported Plus Iron 29-1 mg ( Vit-Iron Carbonyl) 29 Mg Iron-1 Mg Tab 1 Tab PO DAILY Review of Systems Except as stated in HPI: all other systems reviewed are Neg Gastrointestinal: Positive: Nausea, Vomiting, Diarrhea, No: Abdominal Pain Genitourinary: No: Dysuria, Pelvic Pain, Discharge, Vaginal Bleeding Physical Exam Narrative GENERAL: Well-developed, well-nourished, alert female. Presenting in no acute distress. SKIN: Warm and dry. HEAD: Atraumatic. Normocephalic. EYES: Pupils equal and round. No scleral icterus. No injection or drainage. ENT: No nasal bleeding or discharge. Mucous membranes pink and moist. NECK: Trachea midline. No JVD. CARDIOVASCULAR: Regular rate and rhythm. RESPIRATORY: No accessory muscle use. Clear to auscultation. Breath sounds equal bilaterally. GASTROINTESTINAL: Abdomen soft, non-tender, nondistended. Hepatic and splenic margins not palpable. No rebound, no guarding, positive bowel sounds. MUSCULOSKELETAL: Extremities without clubbing, cyanosis, or edema. No obvious deformities. NEUROLOGICAL: Awake and alert. No obvious cranial nerve deficits. Motor grossly within normal limits. Five out of 5 muscle strength in the arms and legs. Normal speech. PSYCHIATRIC: Appropriate mood and affect; insight and judgment normal. Data Data Last Documented VS Vital Signs Date Time Temp Pulse Resp B/P (MAP) Pulse Ox O2 Delivery O2 Flow Rate FiO2 08/05/17 20:38 99.0 90 16 126/77 (93) 100 Orders Orders Complete Blood Count With Diff (08/05/17 21:08) Comprehensive Metabolic Panel (08/05/17 21:08) Urinalysis - C+S If Indicated (08/05/17 21:08) Lipase (08/05/17 21:08) Iv Access Insert/Monitor (08/05/17 21:08) Ecg Monitoring (08/05/17 21:08) Oximetry (08/05/17 21:08) Ondansetron Inj (Zofran Inj) (08/05/17 21:15) Sodium Chlor 0.9% 1000 Ml Inj (Ns 1000 M (08/05/17 21:08) Sodium Chloride 0.9% Flush (Ns Flush) (08/05/17 21:15) Potassium Chloride (Kcl) (08/05/17 22:15) Labs Laboratory Tests Test 08/05/17 21:15 08/05/17 22:26 White Blood Count 13.4 TH/MM3 Red Blood Count 4.77 MIL/MM3 Hemoglobin 15.0 GM/DL Hematocrit 42.6 % Mean Corpuscular Volume 89.3 FL Mean Corpuscular Hemoglobin 31.4 PG Mean Corpuscular Hemoglobin Concent 35.1 % Red Cell Distribution Width 12.2 % Platelet Count 282 TH/MM3 Mean Platelet Volume 7.7 FL Neutrophils (%) (Auto) 70.3 % Lymphocytes (%) (Auto) 23.5 % Monocytes (%) (Auto) 5.4 % Eosinophils (%) (Auto) 0.4 % Basophils (%) (Auto) 0.4 % Neutrophils # (Auto) 9.4 TH/MM3 Lymphocytes # (Auto) 3.1 TH/MM3 Monocytes # (Auto) 0.7 TH/MM3 Eosinophils # (Auto) 0.1 TH/MM3 Basophils # (Auto) 0.1 TH/MM3 CBC Comment DIFF FINAL Differential Comment Blood Urea Nitrogen 11 MG/DL Creatinine 0.69 MG/DL Random Glucose 80 MG/DL Total Protein 9.1 GM/DL Albumin 4.8 GM/DL Calcium Level 10.2 MG/DL Alkaline Phosphatase 75 U/L Aspartate Amino Transf (AST/SGOT) 21 U/L Alanine Aminotransferase (ALT/SGPT) 21 U/L Total Bilirubin 0.3 MG/DL Sodium Level 136 MEQ/L Potassium Level 3.4 MEQ/L Chloride Level 102 MEQ/L Carbon Dioxide Level 23.4 MEQ/L Anion Gap 11 MEQ/L Estimat Glomerular Filtration Rate 108 ML/MIN Lipase 126 U/L Urine Color YELLOW Urine Turbidity CLEAR Urine pH 6.0 Urine Specific [place] 1.012 Urine Protein NEG mg/dL Urine Glucose (UA) NEG mg/dL Urine Ketones 15 mg/dL Urine Occult Blood TRACE Urine Nitrite NEG Urine Bilirubin NEG Urine Urobilinogen 0.2 MG/DL Urine Leukocyte Esterase NEG Urine WBC LESS THAN 1 /hpf Urine Squamous Epithelial Cells <1 /hpf Microscopic Urinalysis Comment CULT NOT INDICATED MDM Medical Decision Making Medical Screen Exam Complete: Yes Emergency Medical Condition: Yes Interpretation(s) Vital Signs Date Time Temp Pulse Resp B/P (MAP) Pulse Ox O2 Delivery O2 Flow Rate FiO2 08/05/17 20:38 99.0 90 16 126/77 (93) 100 Laboratory Tests Test 08/05/17 21:15 08/05/17 22:26 White Blood Count 13.4 TH/MM3 Red Blood Count 4.77 MIL/MM3 Hemoglobin 15.0 GM/DL Hematocrit 42.6 % Mean Corpuscular Volume 89.3 FL Mean Corpuscular Hemoglobin 31.4 PG Mean Corpuscular Hemoglobin Concent 35.1 % Red Cell Distribution Width 12.2 % Platelet Count 282 TH/MM3 Mean Platelet Volume 7.7 FL Neutrophils (%) (Auto) 70.3 % Lymphocytes (%) (Auto) 23.5 % Monocytes (%) (Auto) 5.4 % Eosinophils (%) (Auto) 0.4 % Basophils (%) (Auto) 0.4 % Neutrophils # (Auto) 9.4 TH/MM3 Lymphocytes # (Auto) 3.1 TH/MM3 Monocytes # (Auto) 0.7 TH/MM3 Eosinophils # (Auto) 0.1 TH/MM3 Basophils # (Auto) 0.1 TH/MM3 CBC Comment DIFF FINAL Differential Comment Blood Urea Nitrogen 11 MG/DL Creatinine 0.69 MG/DL Random Glucose 80 MG/DL Total Protein 9.1 GM/DL Albumin 4.8 GM/DL Calcium Level 10.2 MG/DL Alkaline Phosphatase 75 U/L Aspartate Amino Transf (AST/SGOT) 21 U/L Alanine Aminotransferase (ALT/SGPT) 21 U/L Total Bilirubin 0.3 MG/DL Sodium Level 136 MEQ/L Potassium Level 3.4 MEQ/L Chloride Level 102 MEQ/L Carbon Dioxide Level 23.4 MEQ/L Anion Gap 11 MEQ/L Estimat Glomerular Filtration Rate 108 ML/MIN Lipase 126 U/L Urine Color YELLOW Urine Turbidity CLEAR Urine pH 6.0 Urine Specific [place] 1.012 Urine Protein NEG mg/dL Urine Glucose (UA) NEG mg/dL Urine Ketones 15 mg/dL Urine Occult Blood TRACE Urine Nitrite NEG Urine Bilirubin NEG Urine Urobilinogen 0.2 MG/DL Urine Leukocyte Esterase NEG Urine WBC LESS THAN 1 /hpf Urine Squamous Epithelial Cells <1 /hpf Microscopic Urinalysis Comment CULT NOT INDICATED Vital Signs Date Time Temp Pulse Resp B/P (MAP) Pulse Ox O2 Delivery O2 Flow Rate FiO2 08/05/17 20:38 99.0 90 16 126/77 (93) 100 Differential Diagnosis Gastroenteritis versus viral syndrome versus hyperemesis gravidarum versus metabolic abnormality versus other Narrative Course Patient is a 22-year-old female presenting with nausea, vomiting, diarrhea. Abdominal exam is benign. Bedside ultrasound shows 2 intrauterine fetuses with heart tones and movement detected. Labs ordered and pending. IV fluids and Zofran given. CBC with a white count of 13.4, likely stress response. Chemistry potassium 3.4, potassium replacement ordered. Urinalysis with 15 ketones Patient received IV fluids and Zofran, she has not had any further episodes of nausea vomiting in the emergency department. She is otherwise well-appearing. She tolerated oral fluid challenge. Patient has appointment with her time cycle operator on the , she was encouraged to keep this appointment. She is encouraged to increase oral fluid intake. She can return to emergency department for any new or worsening symptoms. Patient stable for discharge. Diagnosis Primary Impression: Nausea and vomiting in Referrals: Hide Handler 1 week Patient Instructions: General Instructions, Nausea and Vomiting in ( ED) Additional Instructions: Maintain adequate fluid intake Take vitamins as directed Follow-up with your time cycle operator as scheduled Return to emergency department for any new or worsening symptoms Disposition: 01 DISCHARGE HOME Condition: Stable Rebeka Ennis August 05, 2017 21:24
[2017-08-05 21:41] LABS: ALT (GPT) 21 U/L (9-42); AUTOMATED NEUTROPHIL # 9.4 TH/MM3 (1.8-7.7); BASOPHIL # 0.1 TH/MM3 (0-0.2); BASOPHIL % 0.4 % (0.0-2.0); EOSINOPHIL # 0.1 TH/MM3 (0-0.4); EOSINOPHIL % 0.4 % (0.0-4.0); HEMATOCRIT 42.6 % (35.0-46.0); LYMPH % 23.5 % (9.0-44.0); LYMPHOCYTE # 3.1 TH/MM3 (1.0-4.8); MEAN CELL VOLUME 89.3 FL (80.0-100.0); MEAN CORPUSCULAR HEMOGLOBIN 31.4 PG (27.0-34.0); MEAN CORPUSCULAR HGB CONC 35.1 % (32.0-36.0); MEAN PLATELET VOLUME 7.7 FL (7.0-11.0); MONO % 5.4 % (0.0-8.0); MONOCYTE # 0.7 TH/MM3 (0-0.9); NEUT % 70.3 % (16.0-70.0); PLATELET COUNT 282 TH/MM3 (150-450); RED BLOOD COUNT 4.77 MIL/MM3 (4.00-5.30); RED CELL DISTRIBUTION WIDTH 12.2 % (11.6-17.2); WHITE BLOOD COUNT 13.4 TH/MM3 (4.0-11.0)
[2017-08-05 21:43] LABS: ALKALINE PHOSPHATASE 75 U/L (45-117); TOTAL BILIRUBIN ADULT 0.3 MG/DL (0.2-1.0); TOTAL PROTEIN 9.1 GM/DL (6.4-8.2)
[2017-08-05 21:44] LABS: ALBUMIN 4.8 GM/DL (3.4-5.0); AST (GOT) 21 U/L (16-38); BICARBONATE 23.4 MEQ/L (21.0-32.0); BLOOD UREA NITROGEN 11 MG/DL (7-18); CALCIUM 10.2 MG/DL (8.5-10.1); CHLORIDE 102 MEQ/L (98-107); CREATININE 0.69 MG/DL (0.50-1.00); GLOMERULAR FILTRATION RATE 108 ML/MIN (>89); GLUCOSE,RANDOM 80 MG/DL (74-106); SODIUM (NA) 136 MEQ/L (136-145)
[2017-08-05] MEDS ORDERED: POTASSIUM CHLORIDE 10 MEQ CONTROLLED RELEASE TAB PO ONE (22:15)
[2017-08-05 23:08] LABS: BILIRUBIN, URINE NEG (NEG); GLUCOSE,URINE NEG (NEG); KETONE, URINE 15 mg/dL (NEG); NITRITE,URINE NEG (NEG); URINE COLOR YELLOW (YELLW/STRAW); URINE LEUKOCYTE ESTERASE NEG (NEG)
[2017-08-05 23:10] LABS: BLOOD, URINE TRACE (NEG)
[2017-08-05 23:14] LABS: SQUAMOUS EPITHELIAL CELL URINE <1 /hpf (0-5)
--- NOTE | 2017-08-06 00:10 | PD ---
Data Data Last Documented VS Vital Signs Date Time Temp Pulse Resp B/P (MAP) Pulse Ox O2 Delivery O2 Flow Rate FiO2 08/05/17 20:38 99.0 90 16 126/77 (93) 100 Orders Orders Complete Blood Count With Diff (08/05/17 21:08) Comprehensive Metabolic Panel (08/05/17 21:08) Urinalysis - C+S If Indicated (08/05/17 21:08) Lipase (08/05/17 21:08) Iv Access Insert/Monitor (08/05/17 21:08) Ecg Monitoring (08/05/17 21:08) Oximetry (08/05/17 21:08) Ondansetron Inj (Zofran Inj) (08/05/17 21:15) Sodium Chlor 0.9% 1000 Ml Inj (Ns 1000 M (08/05/17 21:08) Sodium Chloride 0.9% Flush (Ns Flush) (08/05/17 21:15) Potassium Chloride (Kcl) (08/05/17 22:15) Ed Discharge Order (08/05/17 23:50) Labs Laboratory Tests Test 08/05/17 21:15 08/05/17 22:26 White Blood Count 13.4 TH/MM3 Red Blood Count 4.77 MIL/MM3 Hemoglobin 15.0 GM/DL Hematocrit 42.6 % Mean Corpuscular Volume 89.3 FL Mean Corpuscular Hemoglobin 31.4 PG Mean Corpuscular Hemoglobin Concent 35.1 % Red Cell Distribution Width 12.2 % Platelet Count 282 TH/MM3 Mean Platelet Volume 7.7 FL Neutrophils (%) (Auto) 70.3 % Lymphocytes (%) (Auto) 23.5 % Monocytes (%) (Auto) 5.4 % Eosinophils (%) (Auto) 0.4 % Basophils (%) (Auto) 0.4 % Neutrophils # (Auto) 9.4 TH/MM3 Lymphocytes # (Auto) 3.1 TH/MM3 Monocytes # (Auto) 0.7 TH/MM3 Eosinophils # (Auto) 0.1 TH/MM3 Basophils # (Auto) 0.1 TH/MM3 CBC Comment DIFF FINAL Differential Comment Blood Urea Nitrogen 11 MG/DL Creatinine 0.69 MG/DL Random Glucose 80 MG/DL Total Protein 9.1 GM/DL Albumin 4.8 GM/DL Calcium Level 10.2 MG/DL Alkaline Phosphatase 75 U/L Aspartate Amino Transf (AST/SGOT) 21 U/L Alanine Aminotransferase (ALT/SGPT) 21 U/L Total Bilirubin 0.3 MG/DL Sodium Level 136 MEQ/L Potassium Level 3.4 MEQ/L Chloride Level 102 MEQ/L Carbon Dioxide Level 23.4 MEQ/L Anion Gap 11 MEQ/L Estimat Glomerular Filtration Rate 108 ML/MIN Lipase 126 U/L Urine Color YELLOW Urine Turbidity CLEAR Urine pH 6.0 Urine Specific [place] 1.012 Urine Protein NEG mg/dL Urine Glucose (UA) NEG mg/dL Urine Ketones 15 mg/dL Urine Occult Blood TRACE Urine Nitrite NEG Urine Bilirubin NEG Urine Urobilinogen 0.2 MG/DL Urine Leukocyte Esterase NEG Urine WBC LESS THAN 1 /hpf Urine Squamous Epithelial Cells <1 /hpf Microscopic Urinalysis Comment CULT NOT INDICATED MDM Supervised Visit with LASHON: Yes Narrative Course The history, exam, and medical decision-making in the associated midlevel provider note were completed with my assistance. I reviewed and agree with the findings presented. I attest that I had a [id number] encounter with the patient on the same day, and personally performed and documented my assessment and findings in the medical record. *My assessment and Findings: This is a 22-year-old female who is who presents the emergency department with vomiting and diarrhea. She appears well on exam. Labs demonstrate some urinary ketones but are otherwise reassuring. She has a benign abdomen. Patient was given IV hydration and feels much better. I think she can be discharged and follow-up with her market analyst. She was encouraged to continue to orally hydrate. Diagnosis Primary Impression: Nausea and vomiting in Referrals: Telephone Lineman 1 week Patient Instructions: General Instructions, Nausea and Vomiting in ( ED) Departure Forms: Work Release, Enter return to work date: August 08, 2017 Tests/Procedures Additional Instruction: Maintain adequate fluid intake Take vitamins as directed Follow-up with your market analyst as scheduled Return to emergency department for any new or worsening symptoms Disposition: 01 DISCHARGE HOME Condition: Stable Delia Alcala MD August 06, 2017 00:10
== END 2017-08-06 | disposition home or self-care (01) ==
LOC: NEPD 20:31
DX: O21.9 Vomiting of pregnancy, unspecified (principal); R19.7 Diarrhea, unspecified; Z87.891 Personal history of nicotine dependence
CPT/HCPCS: 80053; 81001; 83690; 85025; 96360; 99284; J2405; J7030

== ENCOUNTER → 2017-08-31 | Outpatient (CLI) | payer OTHER ==
[~2017-08-31] MED LIST changes: -IBUP-232 PO; +PREN29TA PO; -SUDO60TA2 PO
== END ==
LOC: HPND 12:38
PROVIDERS: ATTEND Obstetrics & Gynecology
DX: O30.041 Twin pregnancy, dichorionic/diamniotic, first trimester (principal)
CPT/HCPCS: 76813; 76814

== ENCOUNTER → 2017-09-28 | Outpatient (CLI) | payer OTHER | LOC: HPND 09:54 | PROVIDERS: ATTEND Obstetrics & Gynecology | DX: O35.1XX0 Maternal care for (suspected) chromosomal abnormality in fetus, not applicable or unspecified (principal); O30.042 Twin pregnancy, dichorionic/diamniotic, second trimester | CPT/HCPCS: 76811; 76812; 76817 ==

== ENCOUNTER 2018-01-19 09:02 | Inpatient (IN) ==
[2018-01-19] MEDS ORDERED: fentaNYL Citrate Inj 100 MCG/2 ML Ampul IV.PUSH PRN ×2 (10:42)
[2018-01-19] MEDS ORDERED: Penicillin G Potassium Inj 5,000,000 UNIT in Sodium Chloride 0.9% Inj 100 ML IV.SIG ONE (10:42)
[2018-01-19] MEDS ORDERED: Oxytocin 30 Units/500ml Premix 30 UNITS/500 ML BAG IV.SIG ONE (10:42)
[2018-01-19] MEDS ORDERED: Sodium Chlor 0.9% Inj 500 ML IV.SIG PRN (10:42)
[2018-01-19] MEDS ORDERED: Naloxone Inj 0.4 MG/ML Vial IV.PUSH PRN ×2 (10:42→16:48)
[2018-01-19] MEDS ORDERED: Sod Chloride 0.9% Inj 1,000 ML IV.CONT PRN (10:42)
[2018-01-19] MEDS ORDERED: Citric Acid/Sodium Citrate Liq 30 ML UDC PO SCH (10:45)
--- NOTE | 2018-01-19 10:49 | P.HPOB ---
History of Present Illness Primary Care Physician: No Primary Care Physician Dr. Jalen Nobles Chief Complaint: Contractions History of Present Illness: This patient is a 22-year-old white female at 33-34 weeks with twin gestation who complains of contractions since 7:00 this morning. She denies bleeding or leakage of fluid. NST is reactive on both babies she is katy every 3 minutes. Also dilated 7 cm 100% and -2, first baby is vertex with a bulging bag Weeks Gestation:: 33 Para: 0 : 2 Total # of Miscarriage(s): 1 Review of Systems All other systems reviewed negative except as stated in HPI PMFSH - History History Provided By: Patient - Social History I have reviewed the patient's Social History: Yes - Tobacco History Second Hand Smoke Exposure: Yes Tobacco Use In Past 30 Days: Yes Smoking Status: Smoker, status unknown (3/d) Tobacco Type: Cigarettes - Alcohol History How Often Do You Have a Drink Containing Alcohol: Never - Substance Use History Substance History: No History of Abuse - Travel History History of Recent Travel: No Recent Travel in the [place] Within the Last 8 Weeks: No Recent Travel Out of the Country Within the Last 8 Weeks: No Medications and Allergies Allergies Allergy/AdvReac Type Severity Reaction Status Date / Time No Known Allergies AdvReac Unknown none Uncoded 01/05/18 19:24 Home Medications Medication Instructions Recorded Confirmed Type Aspirin Low Dose 1 tab PO DAILY 01/05/18 01/05/18 History PNV [id number]-ferrous fumarate-FA 1 tab PO DAILY 01/05/18 01/05/18 History [] Exam Vital signs: Vital Signs 01/19/18 09:13 01/19/18 09:15 01/19/18 09:43 Temperature 97.9 F Pulse Rate 96 H 85 Respiratory Rate 18 Blood Pressure 141/84 H 137/92 H 01/19/18 10:00 Temperature Pulse Rate 88 Respiratory Rate Blood Pressure 135/83 Narrative: GENERAL: Well-nourished, well-developed patient. SKIN: Warm and dry. HEAD: Normocephalic and atraumatic. EYES: No scleral icterus. No injection or drainage. ENT: No nasal drainage noted. Mucous membranes pink. Airway patent. NECK: Supple, trachea midline. No JVD. CARDIOVASCULAR: Regular rate and rhythm without murmurs, gallops, or rubs. RESPIRATORY: Breath sounds equal bilaterally. No accessory muscle use. BREASTS: Bilateral exam showed no masses , no retractions, no nipple discharge. ABDOMEN/GI: Abdomen soft, non-tender, bowel sounds present, no rebound, no guarding Gravid to [40-] weeks size Fundal Height: [40-] GENITOURINARY: External Genitalia: intact and normal in appearance BUS glands: [-] Cervix: [mid-] Dilatation: [7-] Effacement: [100-] Station: [-2] Presentation: [vtx /vtx-] Membranes: [intact bulging bag] Uterine Contractions: [q 3 min-] FHT's: Category: [1-] Baseline: [134/138-] Reactive: [-R] Variability: [-mod] Decels: [0-] EXTREMITIES: No cyanosis or edema. BACK: Nontender without obvious deformity. No CVA tenderness. NEUROLOGICAL: Awake and alert. Motor and sensory grossly within normal limits. Five out of 5 muscle strength in all muscle groups. Normal speech. Caprini VTE Risk Assessment Caprini VTE Risk Assessment: No/Low Risk (score <= 1) Caprini Risk Assessment Model: Point Value = 1 Point Value = 2 Point Value = 3 Point Value = 5 Age 41-60 Minor surgery BMI > 25 kg/m2 Swollen legs Varicose veins or History of unexplained or recurrent spontaneous Oral contraceptives or hormone replacement Sepsis (< 1 month) Serious lung disease, including pneumonia (< 1 month) Abnormal pulmonary function Acute myocardial infarction Congestive heart failure (< 1 month) History of inflammatory bowel disease Medical patient at bed rest Age 61-74 Arthroscopic surgery Major open surgery (> 45 min) Laparoscopic surgery (> 45 min) Malignancy Confined to bed (> 72 hours) Immobilizing plaster cast Central venous access Age >= 75 History of VTE Family history of VTE Factor V Leiden Prothrombin [id number] Lupus anticoagulant Anticardiolipin antibodies Elevated serum homocysteine Heparin-induced thrombocytopenia Other congenital or acquired thrombophilia Stroke (< 1 month) Elective arthroplasty Hip, pelvis, or leg fracture Acute spinal cord injury (< 1 month) Prophylaxis Regimen: Total Risk Factor Score Risk Level Prophylaxis Regimen 0-1 Low Early ambulation 2 Moderate Order ONE of the following: *Sequential Compression Device (SCD) *Heparin 5000 units SQ BID 3-4 Higher Order ONE of the following medications: *Heparin 5000 units SQ TID *Enoxaparin/Lovenox 40 mg SQ daily (WT < 150 kg, CrCl > 30 mL/min) *Enoxaparin/Lovenox 30 mg SQ daily (WT < 150 kg, CrCl > 10-29 mL/min) *Enoxaparin/Lovenox 30 mg SQ BID (WT < 150 kg, CrCl > 30 mL/min) AND/OR *Sequential Compression Device (SCD) 5 or more Highest Order ONE of the following medications: *Heparin 5000 units SQ TID (Preferred with Epidurals) *Enoxaparin/Lovenox 40 mg SQ daily (WT < 150 kg, CrCl > 30 mL/min) *Enoxaparin/Lovenox 30 mg SQ daily (WT < 150 kg, CrCl > 10-29 mL/min) *Enoxaparin/Lovenox 30 mg SQ BID (WT < 150 kg, CrCl > 30 mL/min) AND *Sequential Compression Device (SCD) Assessment and Plan - Diagnosis (1) Twin Code(s): O30.009 - Twin , unspecified number of placenta and unspecified number of amniotic sacs, unspecified trimester Status: Acute (2) 33 weeks gestation of Code(s): Z3A.33 - 33 weeks gestation of Status: Acute (3) Uterine contractions during Code(s): O62.2 - Other uterine inertia Status: Acute - Plan This primiparous patient is 33-1/2 weeks with twins in active labor, cervix is 7 /100/-2 with vertex on first baby in a bulging bag. She tells me both babies are vertex on recent scan. NST is reactive she is katy. Plan is to admit anticipate vaginal delivery of twins
[2018-01-19] MEDS ORDERED: Betamethasone Sod Phos/Acetate Inj 30 MG/5 ML Vial IM ONE (11:07)
[2018-01-19 11:26] LABS: Baso % (Auto) 0.3 % (0.0-2.0); Eos % (Auto) 0.3 % (0.0-4.0); Hematocrit 38.3 % (35.0-46.0); Hemoglobin 12.7 gm/dL (11.6-15.3); Lymph # (Auto) 1.7 th/mm3 (1.0-4.8); Lymph % (Auto) 14.2 % (9.0-44.0); Mean Corpuscular HGB Conc 33.1 % (32.0-36.0); Mean Corpuscular Hemoglobin 29.6 pg (27.0-34.0); Mean Corpuscular Volume 89.5 fL (80.0-100.0); Mean Platelet Volume 7.7 fL (7.0-11.0); Mono # (Auto) 0.7 th/mm3 (0.0-0.9); Mono % (Auto) 5.8 % (0.0-8.0); Neut # (Auto) 9.6 th/mm3 (1.8-7.7); Neut % (Auto) 79.4 % (16.0-70.0); Platelet Count 224 th/mm3 (150-450); Red Blood Count 4.28 mil/mm3 (4.00-5.30); Red Cell Distribution Width 12.9 % (11.6-17.2); White Blood Count 12.1 th/mm3 (4.0-11.0)
[2018-01-19 12:58] LABS: Bilirubin,Urine Negative (Negative); Clarity,Urine Clear (Clear); Color,Urine Yellow (Yellw/Straw); Glucose,Urine (UA) Negative (Negative); Leukocyte Esterase,Urine Negative (Negative); Mucus,Urine Few /lpf (Occasional); Nitrite,Urine Negative (Negative); Specific Gravity,Urine 1.029 (1.002-1.035); Squamous Epithelial Cell,Urine 2 /hpf (0-5)
[2018-01-19 13:01] LABS: Amphetamine Urine With Conf Neg (Neg); Benzodiazepine Urine With Conf Neg (Neg)
[2018-01-19 13:10] LABS: Alanine Aminotransferase 18 U/L (9-42); Albumin 2.7 g/dL (3.4-5.0); Anion Gap 10 meq/L (5-15); Aspartate Aminotransferase 19 U/L (16-38); Blood Urea Nitrogen 16 mg/dL (7-18); Calcium 8.5 mg/dL (8.5-10.1); Carbon Dioxide 19.7 meq/L (21.0-32.0); Chloride 109 meq/L (98-107); Glomerular Filtration Rate 75 mL/min (>89); Glucose,Random 94 mg/dL (74-106); Potassium 3.9 meq/L (3.5-5.1); Sodium 139 meq/L (136-145)
[2018-01-19 13:12] LABS: Alkaline Phosphatase 213 U/L (45-117); Total Protein 6.8 g/dL (6.4-8.2)
[2018-01-19] MEDS ORDERED: Lidocaine 1% Inj 50 ML Vial ONE (14:18)
[2018-01-19] MEDS ORDERED: Oxytocin 30 Units/500ml Premix 30 UNITS/500 ML BAG ONE (14:25)
[2018-01-19] MEDS ORDERED: Lidocaine PF 1% Inj 5 ML Vial ONE (14:44)
[2018-01-19] MEDS ORDERED: Lidocaaine 1.5%/Epinephrine 1:200,000 PF Inj 5 ML Amp ONE (14:44)
[2018-01-19] MEDS ORDERED: fentaNYL 2MCG-Bupiv 0.125% Epi 150 ML EPIDURAL ONE (15:03)
[2018-01-19] MEDS ORDERED: Diphtheria/Tetanus/Pertussis Vaccine Inj 0.5 ML Syringe IM ONE (16:00)
[2018-01-19] MEDS ORDERED: Measles/Mumps/Rubella Vaccine Inj 0.5 ML Vial SQ ONE (16:00)
[2018-01-19] MEDS ORDERED: Oxytocin 30 Units/500ml Premix 30 UNITS/500 ML BAG IV.CONT PRN (16:48)
[2018-01-19] MEDS ORDERED: Benzocaine 20% Top Spray 60 ML Can TOPICAL PRN (16:48)
[2018-01-19] MEDS ORDERED: Zolpidem Tartrate 5 MG Tablet PO PRN (16:48)
[2018-01-19] MEDS ORDERED: Bisacodyl 10 MG Supp RECTAL PRN (16:48)
[2018-01-19] MEDS ORDERED: Acetaminophen 325 MG Tablet PO PRN (16:48)
[2018-01-19] MEDS ORDERED: Witch Hazel 50%/Glyderin 12.5% 40 Pad Jar RECTAL PRN (16:48)
[2018-01-19 18:06] LABS: Cord Arterial Blood HCO3 17.3
[2018-01-19 18:07] LABS: Cord Arterial Blood HCO3 15.8
--- NOTE | 2018-01-19 18:07 | P.OBDELI ---
Weeks Gestation: 33 Anesthesia: Epidural Episiotomy: midline Vaginal Delivery: Normal Presentation: Occiput anterior Nuchal Cord: None Delayed Cord Clamping (45 sec): Yes Placenta: Spontaneous delivery Laceration: Episiotomy, 2 deg Repair: Chromic running Estimated blood loss (mL): 200 Infant: Male Infant Male A Delivery Date: 01/19/18 Infant Delivery Time: 15:59 Weight: 2.005 kg score (1 min): 8 score (5 min): 8 Male B Infant Delivery Date: 01/19/18 Delivery Time: 16:17 Weight: 2.17 kg score (1 min): 7 score (5 min): 7 (Patient with a 33-1/2-week twins and spontaneous labor and was taken to the OR for delivery. Both babies are vertex baby delivered without complication and the baby's information is already documented under male A, cord pH and cord blood obtained at that time the attention was turned to the second baby. On examining the cervix there was no membrane no intact bag palpable just baby' B 's head and at that time there was a noted bradycardia of the second twin into the 50s and on palpating the vagina there was a loop of umbilical cord that had prolapsed down in front of the head. I was able to dislodge the baby's head lifted up and was able to push the cord back up higher than the head back behind the neck of baby B and with that maneuver the heart rate returned to within normal limits. Patient began to push with contractions push the baby down well enough to deliver vaginally without assistance baby be information under male babyB cord pHs were obtained for both babies are pending at time of dictation. Mother tolerated the procedure well had a small second degree episiotomy repaired without incident)
[2018-01-19] MEDS: Senna/Docusate Sodium 8.6/50 MG Tablet PO SCH (21:48)
[2018-01-20] MEDS: Penicillin G Potassium Inj 2,500,000 UNIT in Sodium Chlor 0.9% Inj 100 ML IV.SIG SCH ×2 (00:26→05:30)
[2018-01-20] MEDS: Senna/Docusate Sodium 8.6/50 MG Tablet PO SCH ×2 (08:29→22:12)
--- NOTE | 2018-01-20 09:32 | P.PNOB ---
Subjective Post day: 1 Interval history: day # 1 Afebrile with mild hypertension and stable vitals overnight. Decreased lochia. Denies dysuria. No breast pain. Appetite good. No nausea or vomiting. Ambulating well. Denies calf pain or shortness of breath. No BM, but is passing gas. Otherwise, she is doing well this morning and has no other complaints. Objective Vital Signs/I&O: Vital Signs 01/19/18 09:43 01/19/18 10:00 01/19/18 10:15 Temperature Pulse Rate 85 88 88 Respiratory Rate Blood Pressure 137/92 H 135/83 144/94 H 01/19/18 12:26 01/19/18 15:13 01/19/18 17:00 Temperature 98.2 F 98.8 F Pulse Rate 87 98 H Respiratory Rate 18 16 18 Blood Pressure 135/75 128/79 01/19/18 17:05 01/19/18 17:15 01/19/18 17:30 Temperature Pulse Rate 88 79 72 Respiratory Rate 18 Blood Pressure 132/73 138/88 139/86 01/19/18 17:45 01/19/18 17:57 01/19/18 21:53 Temperature 98.3 F Pulse Rate 68 90 Respiratory Rate 18 18 Blood Pressure 142/78 H 144/81 H 01/20/18 00:35 01/20/18 07:05 Temperature 98.0 F Pulse Rate 74 73 Respiratory Rate 18 18 Blood Pressure 134/79 127/70 Intake & Output 01/19/18 01/20/18 01/20/18 18:59 06:59 18:59 Weight 104 kg Result Diagrams: 01/19/18 11:00 01/19/18 11:00 Objective Remarks: General: Alert, well appearing, in no acute distress Skin: Warm and dry HEENT: Atraumatic. Moist mucus membranes Cardiac: Regular rate and rhythm without murmur Pulmonary: No increased work of breathing. Clear to auscultation bilaterally with good air movement. Abdominal: Non-tender. uterus firm and 2 fingers above the umbilicus Extremities: 2+ pedal pulses, b/l 2+ edema, no calf tenderness Medications and IVs: Active Medications Acetaminophen (Tylenol) 650 mg PO Q4H PRN PRN Reason: PAIN SCALE 1 TO 2 Last Admin: 01/20/18 07:51 Dose: 650 mg Al Hydroxide/Mg Hydroxide (Milk Of Magnesia Liq) 30 ml PO Q12H PRN PRN Reason: Mild Constipation Benzocaine (Americaine 20% [place]) 1 spray TOPICAL Q4H PRN PRN Reason: For Perineum Discomfort Last Admin: 01/19/18 21:49 Dose: 1 spray Bisacodyl (Dulcolax Supp) 10 mg RECTAL DAILY PRN PRN Reason: SEVERE CONSITIPATION Citric Acid/Sodium Citrate (Sodium Citrate/Citric Acid Liq) 30 ml PO ELECTRONIC TECH [facility] Stop: 01/23/18 10:44 Fentanyl Citrate (Fentanyl Inj) 50 mcg IV.PUSH Q1H PRN PRN Reason: Pain Scale 3 - 5 Fentanyl Citrate (Fentanyl Inj) 100 mcg IV.PUSH Q1H PRN PRN Reason: PAIN SCALE 6 TO 10 Lactated Ringer's (Lr 1000 Ml Inj) 1,000 mls @ 125 mls/hr IV.CONT .Q8H [facility] Last Admin: 01/20/18 05:30 Dose: Not Given Sodium Chloride (Ns Inj) 500 mls @ 1,000 mls/hr IV.SIG UNSCH PRN PRN Reason: SEE LABEL COMMENTS Sodium Chloride (Ns Inj) 1,000 mls @ 100 mls/hr IV.CONT .Q10H PRN PRN Reason: SEE LABEL COMMENTS Lactated Ringer's (Lr 1000 Ml Inj) 1,000 mls @ 3,000 mls/hr IV.SIG UNSCH PRN PRN Reason: compromise or epidural Last Admin: 01/19/18 11:00 Dose: 3,000 mls/hr Oxytocin (Pitocin 30 Units/Ns 500 Ml Premix) 30 units in 500 mls @ 100 mls/hr IV.CONT UNSCH PRN PRN Reason: Heavy bleeding Ibuprofen (Motrin) 800 mg PO Q8H PRN PRN Reason: For Cramping Last Admin: 01/20/18 06:37 Dose: 800 mg Lactulose (Lactulose Liq) 30 ml PO DAILY PRN PRN Reason: SEVERE CONSITIPATION Lidocaine HCl (Xylocaine 1% Inj) 0.1 ml I-DERMAL PRN PRN PRN Reason: For IV start Stop: 01/22/18 10:41 Lidocaine HCl (Xylocaine 1% Inj) 10 ml INFILTRATN PRN PRN PRN Reason: For episiotomy repair Stop: 01/21/18 10:41 Mineral Oil (Muri-Lube Oil) 10 ml TOPICAL PRN PRN PRN Reason: PRN perineal massage Naloxone HCl (Narcan Inj) 0.1 mg IV.PUSH Q2M PRN PRN Reason: for opiate reversal Naloxone HCl (Narcan Inj) 0.1 mg IV.PUSH Q2M PRN PRN Reason: for opiate reversal Ondansetron HCl (Zofran Odt) 4 mg PO Q6H PRN PRN Reason: NAUSEA OR VOMITING Oxycodone/Acetaminophen (Percocet 5/325 Mg) 1 tab PO Q4H PRN PRN Reason: PAIN SCALE 3 TO 5 Senna/Docusate Sodium (Jyothi-Colace) 1 tab PO BID [facility] Last Admin: 01/20/18 08:29 Dose: Not Given Sennosides (Senokot) 17.2 mg PO Q12H PRN PRN Reason: Moderate Constipation Sodium Chloride (Ns Flush) 2 ml IV.FLUSH PRN PRN PRN Reason: FLUSH AFTER USING IV ACCESS Sodium Chloride (Ns Flush) 2 ml IV.FLUSH BID [facility] Last Admin: 01/20/18 08:29 Dose: Not Given Witch Janet/Glycerin (Tucks Pads) 1 applicatio RECTAL QID PRN PRN Reason: HEMORRHOIDS Last Admin: 01/19/18 21:49 Dose: 1 applicatio Zolpidem Tartrate (Ambien) 5 mg PO HS PRN PRN Reason: SLEEP Assessment and Plan - Diagnosis (1) Hypertension in , condition Code(s): O16.5 - Unspecified maternal hypertension, complicating the puerperium Status: Acute (2) 33 weeks gestation of Code(s): Z3A.33 - 33 weeks gestation of Status: Acute - Plan 22 y/o female who is PPD# 1 s/p vaginal delivery (diamniotic and dichorionic twins) with some mild hypertension -Continue routine care. -Motrin /APAP as needed for pain. -Encouraged OOB. Advised pelvic rest for 6 wks. - control: Undecided as to method, will discuss with care for women Hypertension with concern for preeclampsia -She reports that her edema has been present for some time through the now and is likely related to preeclampsia -She has not had documentation of protein in the urine -Her hypertension has been mild with a BP high of 144/94 -We will continue to monitor her pressures and consider further treatment if they worsen Disposition: -Anticipate discharge home tomorrow -She will need close follow-up with care for women due to her hypertension Care was discussed with: Dr. Valdez
[2018-01-21] MEDS: Senna/Docusate Sodium 8.6/50 MG Tablet PO SCH (08:03)
--- NOTE | 2018-01-21 08:31 | P.PNOB ---
Subjective Post day: 2 Interval history: Patient's pain is well-controlled. Patient reports eating and drinking without any nausea or vomiting. Patient reports minimal bleeding. Patient has passed gas but no bowel movements. Patient is walking without lower extremity pain or shortness of breath. Objective Vital Signs/I&O: Vital Signs 01/20/18 20:04 Temperature 98.1 F Pulse Rate 75 Respiratory Rate 18 Blood Pressure 125/88 Result Diagrams: 01/19/18 11:00 01/19/18 11:00 Objective Remarks: GENERAL: Well-nourished, well-developed patient. CARDIOVASCULAR: Regular rate and rhythm without murmurs, gallops, or rubs. RESPIRATORY: Breath sounds equal bilaterally. No accessory muscle use. ABDOMEN/GI: Abdomen soft, non-tender. Fundus: Firm, non-tender at umbilicus. GENITOURINARY: Light to moderate bleeding. EXTREMITIES: No cyanosis or edema, non-tender, without signs of DVT. Medications and IVs: Active Medications Acetaminophen (Tylenol) 650 mg PO Q4H PRN PRN Reason: PAIN SCALE 1 TO 2 Last Admin: 01/20/18 07:51 Dose: 650 mg Al Hydroxide/Mg Hydroxide (Milk Of Magnesia Liq) 30 ml PO Q12H PRN PRN Reason: Mild Constipation Benzocaine (Americaine 20% Top [place]) 1 spray TOPICAL Q4H PRN PRN Reason: For Perineum Discomfort Last Admin: 01/19/18 21:49 Dose: 1 spray Bisacodyl (Dulcolax Supp) 10 mg RECTAL DAILY PRN PRN Reason: SEVERE CONSITIPATION Citric Acid/Sodium Citrate (Sodium Citrate/Citric Acid Liq) 30 ml PO COMPOSITION FLOOR LAYER [facility] Stop: 01/23/18 10:44 Fentanyl Citrate (Fentanyl Inj) 50 mcg IV.PUSH Q1H PRN PRN Reason: Pain Scale 3 - 5 Fentanyl Citrate (Fentanyl Inj) 100 mcg IV.PUSH Q1H PRN PRN Reason: PAIN SCALE 6 TO 10 Lactated Ringer's (Lr 1000 Ml Inj) 1,000 mls @ 125 mls/hr IV.CONT .Q8H [facility] Last Admin: 01/21/18 03:59 Dose: Not Given Sodium Chloride (Ns Inj) 500 mls @ 1,000 mls/hr IV.SIG UNSCH PRN PRN Reason: SEE LABEL COMMENTS Sodium Chloride (Ns Inj) 1,000 mls @ 100 mls/hr IV.CONT .Q10H PRN PRN Reason: SEE LABEL COMMENTS Lactated Ringer's (Lr 1000 Ml Inj) 1,000 mls @ 3,000 mls/hr IV.SIG UNSCH PRN PRN Reason: compromise or epidural Last Admin: 01/19/18 11:00 Dose: 3,000 mls/hr Oxytocin (Pitocin 30 Units/Ns 500 Ml Premix) 30 units in 500 mls @ 100 mls/hr IV.CONT UNSCH PRN PRN Reason: Heavy bleeding Ibuprofen (Motrin) 800 mg PO Q8H PRN PRN Reason: For Cramping Last Admin: 01/21/18 08:03 Dose: 800 mg Lactulose (Lactulose Liq) 30 ml PO DAILY PRN PRN Reason: SEVERE CONSITIPATION Lidocaine HCl (Xylocaine 1% Inj) 0.1 ml I-DERMAL PRN PRN PRN Reason: For IV start Stop: 01/22/18 10:41 Lidocaine HCl (Xylocaine 1% Inj) 10 ml INFILTRATN PRN PRN PRN Reason: For episiotomy repair Stop: 01/21/18 10:41 Mineral Oil (Muri-Lube Oil) 10 ml TOPICAL PRN PRN PRN Reason: PRN perineal massage Naloxone HCl (Narcan Inj) 0.1 mg IV.PUSH Q2M PRN PRN Reason: for opiate reversal Naloxone HCl (Narcan Inj) 0.1 mg IV.PUSH Q2M PRN PRN Reason: for opiate reversal Ondansetron HCl (Zofran Odt) 4 mg PO Q6H PRN PRN Reason: NAUSEA OR VOMITING Oxycodone/Acetaminophen (Percocet 5/325 Mg) 1 tab PO Q4H PRN PRN Reason: PAIN SCALE 3 TO 5 Last Admin: 01/21/18 08:03 Dose: 1 tab Senna/Docusate Sodium (Jyothi-Colace) 1 tab PO BID [facility] Last Admin: 01/21/18 08:03 Dose: 1 tab Sennosides (Senokot) 17.2 mg PO Q12H PRN PRN Reason: Moderate Constipation Sodium Chloride (Ns Flush) 2 ml IV.FLUSH PRN PRN PRN Reason: FLUSH AFTER USING IV ACCESS Sodium Chloride (Ns Flush) 2 ml IV.FLUSH BID [facility] Last Admin: 01/21/18 00:11 Dose: Not Given Witch Janet/Glycerin (Tucks Pads) 1 applicatio RECTAL QID PRN PRN Reason: HEMORRHOIDS Last Admin: 01/19/18 21:49 Dose: 1 applicatio Zolpidem Tartrate (Ambien) 5 mg PO HS PRN PRN Reason: SLEEP Assessment and Plan - Diagnosis (1) Vaginal delivery Code(s): O80 - Encounter for full-term uncomplicated delivery Status: Acute - Plan 22 y/o female who is PPD# 2 s/p vaginal delivery (diamniotic and dichorionic twins) -Continue routine care. -Motrin /APAP as needed for pain. -Encouraged OOB. Advised pelvic rest for 6 wks. - control: Undecided as to method, will discuss with care for women - BP stable over last 24hours Disposition: -D/C home today -She will need close follow-up with care for women due to 2 mildly elevated BPs in period, f/u BPs as outpatient
[2018-01-21 08:47] VITALS: BP 128/84; PULSE 78; RESP 20; TEMP 97.7
[2018-01-21] MEDS ORDERED: Diphtheria/Tetanus/Pertussis Vaccine Inj 0.5 ML Syringe IM ONE (10:11)
== END 2018-01-21 10:34 | disposition home or self-care (01) ==
LOC: HOBED 09:02 → H2E 10:59 → H1EA 18:44
PROVIDERS: ADMIT Obstetrics & Gynecology Maternal & Fetal Medicine; ATTEND Obstetrics & Gynecology Maternal & Fetal Medicine